=== PATIENT | female | born 1990 | race Caucasian/White ===

== ENCOUNTER → 2016-10-13 | Outpatient (REF) | payer OTHER | END | disposition home or self-care (01) | LOC: M LAB REF 12:30 | PROVIDERS: ATTEND Obstetrics & Gynecology | DX: Z34.83 Encounter for supervision of other normal pregnancy, third trimester (principal); Z36 Encounter for antenatal screening of mother; Z3A.00 Weeks of gestation of pregnancy not specified ==

== ENCOUNTER 2016-11-06 16:00 | Inpatient (IN) | payer OTHER ==
[~2016-11-06] VITALS: Ht 160 cm; Wt 93.0 kg
[2016-11-06 16:22] VITALS: BP 129/76
[2016-11-06] MEDS ORDERED: ADV250INH INH (17:01)
[2016-11-06] MEDS ORDERED: PRENTAB9 PO (17:01)
[2016-11-06] MEDS ORDERED: ZANTTAB PO (17:01)
[2016-11-06] MEDS ORDERED: ALBU17IN2 INH (17:01)
[2016-11-06] MEDS ORDERED: LACTATED RINGER'S 1000 ML IV STA (17:25)
[2016-11-06] MEDS ORDERED: OXYTOCIN DRIP 30 UNITS in APPROPRIATE DILUENT 1 EA IV SCH (17:30)
[2016-11-06 18:07] VITALS: BP 128/70
--- NOTE | 2016-11-06 18:11 | HPEPDOC ---
Obstetrical History & Physical General Date of Admission Nov 06, 2016 at 16:00 History of Present Illness Patient is a 5-year-old female who is a at 39 weeks 4 days gestation with an JAJA of 11/09/2016 based off of her LMP and consistent with her first and second trimester ultrasounds. [facility] her has been complicated by asthma , being a smoker, and an abnormal second trimester ultrasound. Patient is seen at the center for an echogenic foci on the heart and choroid plexus cyst, both of which have resolved. The other concern was an echogenic foci on the liver. Patient declined genetic screening. He presented in the office today with complaints of leaking of fluid that started at 1:30 PM that was clear. Patient had a positive nitrazine, scant amount of clear fluid in the vaginal vault, and was positive for a fern test. Patient reports active movement. Denies contractions and vaginal bleeding. Chief Complaint: Rupture of membranes Information Provided By: Patient Age: 25 : 5 Term: 3 Pre-term: 0 Abortions: 1 Livin Care Care: Good Care Dating Final EDC: Nov 09, 2016 Final EDC by: LMP LMP: February 03, 2016 EGA at Admission: 39.4 Antepartum Course Height (inches): 63 Pre- weight (lbs.): 208 Admission Weight (lbs.): 212 Change in Weight (lbs.): 4 Past Medical History Past Obstetrical History #1: Past Obstetrical History: Multigravida Date of Delivery: Jun 07, 2008 Gestation: 39 Type of Delivery: Spontaneous Vaginal Del. Sex of Infant: Female Complications: No (8 lbs. 2 oz.) Past Obstetrical History #2: Date of Delivery: Apr 11, 2010 Gestation: 40 Type of Delivery: Spontaneous Vaginal Del. Sex of : Female Complications: No (weight 8 lbs. 5 oz.; placed for adoption) Past Obstetrical History #3: Date of Delivery: Sep 04, 2011 Type of Delivery: Spontaneous Vaginal Del. Sex of Infant: Male Complications: No (weight: 7 pounds) Past Obstetrical History #4: Complications: Yes (first trimester miscarriage) [employer] History: No pertinent history Past Medical History Medical History Asthma Surgical History: Denies/None Family History Significant Family History: No pertinent family hx Social History Marital Status: Single Family situation: Spouse/partner home Psychosocial History: No pertinent psych hx * Smoker: current smoker Alcohol: denies Drugs: denies Abuse Violence Screening Have you been hit/kicked/slapp: No Have you been sexually assault: No Imunizations Tdap status: current Allergies Coded Allergies: Pollen Extract (Verified Allergy, Mild, (ALSO CATS,DOGS)ITCHY EYES, 12/16/12 ) No Known Drug Allergy (Verified Allergy, Unknown, 12/16/12) Medications Scheduled Multivitamins/ ( 27-0.8 mg) 1 Tab Tab 1 TAB PO DAILY Ranitidine Hcl (Zantac 150 Maximum Streng) 150 Mg Tab 1 TAB PO DAILY Salmeterol/Fluticasone (Advair Diskus 250-50 Mcg/Dose) 14 Puff/Inhaler Aerp 1 PUFF INH DAILY Scheduled PRN Albuterol Sulfate (Proventil Hfa) 167 Puff/6.7 Gm Aers 2 PUFFS INH PRN PRN PRN WHEEZING Physical Examination Physical Examination GENERAL: Alert and oriented times three. BREAST: . ABDOMEN: Gravid and non-tender to touch. FETUS: Is vertex (VTX) by sterile vaginal examination (SVE), fetus is vertex ( VTX) by Eliazar. HEART RATE: Regular rate and rhythm. LUNGS: Clear to auscultation (CTA). EXTREMITIES: No edema. No clonus. Deep tendon reflexes (DTRs) + 2. Vital Signs/I&O Vital Signs Date Time Temp Pulse Resp B/P Pulse Ox O2 Delivery O2 Flow Rate FiO2 11/06/16 16:22 99.7 101 18 129/76 Laboratory Data 24H LABS Laboratory Tests 2 11/06/16 16:24: Serology Scanned Report Hepatitis B Testing Urine Culture: No Growth Pertinent Laboratoy Data Blood Type: O- RBC Antibody Screen: Negative HIV: Negative Hepatitis B: Negative Rapid Plasma Reagin: Nonreactive Rubella: Immune Chlamydia/Gonorrhea: Negative Group B Streptococcus: Negative Quad Screen Test: Declined Glucose Tolerance Test: 93 Vaginal Examination Dilation: 4 cm Effacement: Other (50%) Station: -2 Cervical Consistency: Soft Cervical Position: Middle Presentation: Cephalic presentation Position: Vertex (occiput) Assessment Heart Rate (FHR): 135 Variability: Moderate Accelerations: Positive Decelerations: None Tocometer Contractions: Yes Frequency: other (2-6 minutes) Duration: greater than 60 seconds Strength: palpated as mild Multi-drug resistant Organism: No history of MDRO Assessment/Plan Assessment IUP at 39 weeks 4 days gestation Spontaneous rupture of membrane Not in active labor Category 1 heart rate tracing Plan Admit to labor and delivery. Out of bed as tolerated. Saline lock and labs per protocol. Regular diet. Patient to be started on Pitocin via IV per order. Risks and benefits reviewed with patient. All questions addressed. Diet will change her clear liquids as soon as Pitocin is started. Reviewed pain management options with patient. Anticipate cervical change and spontaneous vaginal delivery. SAMMY FLEMING CNM Nov 06, 2016 18:11
[2016-11-06 18:32] LABS: MEAN CORPUSCULAR HEMOGLOBIN 32.4 pg (27.0-33.0); MEAN CORPUSCULAR HGB CONC 36.1 g/dl (32.0-36.5); MEAN CORPUSCULAR VOLUME 89.9 fl (80.0-96.0); RED CELL DISTRIBUTION WIDTH 13.6 % (11.5-14.5); WHITE BLOOD COUNT 11.4 K/mm3 (4.0-10.0)
[2016-11-06 18:38] VITALS: BP 136/75
[2016-11-06] MEDS ORDERED: BUTORPHANOL 2 MG/ML INJ (J0595) IV ONE (23:45)
[2016-11-06] MEDS ORDERED: PROMETHAZINE INJ 25 MG/ML VIAL (J2550) IV ONE (23:45)
[2016-11-07] MEDS ORDERED: OXYTOCIN DRIP 30 UNITS in APPROPRIATE DILUENT 1 EA IV SCH (02:55)
[2016-11-07] MEDS ORDERED: ANUSOL HC CREAM 30GM TOP PRN (03:00)
[2016-11-07] MEDS ORDERED: DOCUSATE SODIUM 100 MG CAP PO PRN (03:00)
[2016-11-07] MEDS ORDERED: RHOGAM 300 MCG (1500 IU) INJ (J2790) IM SCH (03:00)
[2016-11-07] MEDS ORDERED: METHYLERGONOVINE MALEATE 0.2 MG TAB PO PRN (03:00)
[2016-11-07] MEDS ORDERED: MEASLES,MUMPS,RUBELLA VACCINE INJ (MMR-II) (90707) SC SCH (03:00)
[2016-11-07] MEDS ORDERED: DIBUCAINE 1% OINTMENT 30GM TOP PRN (03:00)
--- NOTE | 2016-11-07 03:16 | DNPDOC ---
Delivery Note Delivery Note DATE OF DELIVERY: Nov 07, 2016 at 02:22. Yulissa Is a 25-year-old now G 5 P 4014 at 39.5 weeks' gestation who presented to labor and delivery spontaneous rupture of membranes at 1330 on 11/06/2016. She progressed to fully dilated at 0219 with the use of Pitocin to augment her labor. Patient pushed to a spontaneous vaginal delivery at 0222 to a living male in the CLEMENTINA position with restitution to ROT. No nuchal cord. A right nuchal hand noted prior to delivery of shoulders. Shoulders delivered with ease and the corpus immediately followed. Baby placed on maternal abdomen active and with a spontaneous cry. Cord clamped 2 and cut by father of the baby after pulsation ceased. Cord blood obtained. Spontaneous delivery of intact placenta with a three-vessel cord by Calderón mechanism at 0229. Uterine hemostasis achieved by rapid infusion of IV Pitocin and uterine fundal massage. Perineum and vagina inspected and found to have a first degree perineal laceration, which was repaired with a 3. 0 Vicryl Rapide CT1. Lidocaine 1% used. EBL 150. 's 9/9. Weight 7 lbs. 11 oz, 3480 g. Gardners's name Kameron and is bottle feeding. SAMMY FLEMING CNM Nov 07, 2016 03:15
[2016-11-07] MEDS: IBUPROFEN 800 MG TAB PO PRN ×2 (04:48→14:55)
[2016-11-07 04:50] VITALS: BP 112/64
[2016-11-07 06:33] VITALS: BP 116/58
[2016-11-07] MEDS: LR 1,000 ML IV SCH (07:16)
[2016-11-07] MEDS: ACETAMINOPHEN 500 MG TAB PO PRN (07:37)
[2016-11-07] MEDS: PRENATAL VITAMIN TAB PO SCH (09:00)
[2016-11-07 18:21] VITALS: BP 117/63
[2016-11-08] MEDS: ACETAMINOPHEN 500 MG TAB PO PRN (00:08)
[2016-11-08] MEDS: IBUPROFEN 800 MG TAB PO PRN (06:02)
[2016-11-08 06:06] VITALS: BP 134/84
[2016-11-08] MEDS: PRENATAL VITAMIN TAB PO SCH (07:26)
[2016-11-08] MEDS ORDERED: ACET50TA PO (10:09)
[2016-11-08] MEDS ORDERED: PRENTAB9 PO (10:09)
[2016-11-08] MEDS ORDERED: IBUP-1114 PO (10:09)
== END 2016-11-08 11:20 | disposition home or self-care (01) | DRG 560 ==
LOC: M LDI 16:00 → M OBS 11-07 06:39
PROVIDERS: ADMIT Obstetrics & Gynecology; ATTEND Advanced Practice Midwife
PROC: 10E0XZZ Delivery of Products of Conception, External Approach (ICD-10-PCS; principal; 2016-11-07)
PROC: 0HQ9XZZ Repair Perineum Skin, External Approach (ICD-10-PCS; 2016-11-07)
DX: O99.513 Diseases of the respiratory system complicating pregnancy, third trimester (principal); J45.909 Unspecified asthma, uncomplicated; O99.334 Smoking (tobacco) complicating childbirth; F17.210 Nicotine dependence, cigarettes, uncomplicated; O70.0 First degree perineal laceration during delivery; O32.6XX0 Maternal care for compound presentation, not applicable or unspecified; Z37.0 Single live birth; Z3A.39 39 weeks gestation of pregnancy

== ENCOUNTER → 2017-01-25 | Outpatient (CLI) | payer OTHER ==
[~2017-01-25] MED LIST: ACET50TA PO; ADV250INH INH; ALBU17IN2 INH; IBUP-1114 PO; PRENTAB9 PO; ZANTTAB PO
--- NOTE | 2017-01-26 07:34 | REP ---
CHEST X-RAY: Two views. HISTORY: Wheezing and fever. Comparison chest x-rays from December 02, 2015. FINDINGS: There is subtle infiltrate in the right base overlying the right hemidiaphragm and medially on the frontal radiograph. Some of this appears to be in a middle lobe distribution based on the lateral radiograph. IMPRESSION: Suspected right middle lobe and lower lobe infiltrates consistent with pneumonia. Signed by Ryan Spicer MD 01/26/2017 08:13 A
== END ==
LOC: M RAD 18:31
PROVIDERS: ATTEND Physician Assistant
DX: R06.2 Wheezing (principal); R05 Cough; R91.8 Other nonspecific abnormal finding of lung field

== ENCOUNTER 2017-09-15 00:18 | Emergency (ER) | payer OTHER ==
[2017-09-15] MEDS: BACTRIM 160MG/800MG DS TAB PO (00:56)
[2017-09-15] MEDS: PERCOCET 5MG/325MG TAB PO (00:58)
== END 2017-09-15 01:33 | disposition home or self-care (01) ==
LOC: M ED 00:18
DX: L02.411 Cutaneous abscess of right axilla (principal); J45.909 Unspecified asthma, uncomplicated; F17.210 Nicotine dependence, cigarettes, uncomplicated; Z91.048 Other nonmedicinal substance allergy status
CPT/HCPCS: 87186

== ENCOUNTER → 2018-10-22 | Outpatient (REF) | payer OTHER ==
[~2018-10-22] MED LIST changes: -ACET50TA PO; +BACT800T5 PO; +MAPA500T2 PO
[2018-10-22 11:10] LABS: HEMATOCRIT 41.4 % (36.0-47.0); HEMOGLOBIN 14.3 g/dl (12.0-15.5); MEAN CORPUSCULAR HEMOGLOBIN 31.4 pg (27.0-33.0); MEAN CORPUSCULAR HGB CONC 34.5 g/dl (32.0-36.5); PLATELET COUNT, AUTOMATED 216 10^3/uL (150-450); RED BLOOD COUNT 4.55 10^6/uL (4.00-5.40); WHITE BLOOD COUNT 7.2 10^3/uL (4.0-10.0)
[2018-10-22 11:20] LABS: ALBUMIN 3.8 GM/DL (3.2-5.2); ALT/SGPT 24 U/L (12-78); BILIRUBIN,TOTAL 0.4 MG/DL (0.2-1.0); BLOOD UREA NITROGEN 8 MG/DL (7-18); CALCIUM LEVEL 8.7 MG/DL (8.5-10.1); CARBON DIOXIDE LEVEL 28 MEQ/L (21-32); CHLORIDE LEVEL 107 MEQ/L (98-107); CHOLESTEROL LEVEL 182 MG/DL (<200); CHOLESTEROL RISK RATIO 4.439 (<5); CREATININE FOR GFR 0.45 MG/DL (0.55-1.30); GLOMERULAR FILTRATION RATE > 60.0 (>60); GLUCOSE, FASTING 85 MG/DL (70-100); HDL CHOLESTEROL 41 MG/DL (>40); LDL CHOLESTEROL 116 MG/DL (<100); NON-HDL-C 141 MG/DL; SODIUM LEVEL 142 MEQ/L (136-145); THYROID STIMULATING HORMONE 0.622 uIU/ML (0.358-3.740); TOTAL PROTEIN 6.3 GM/DL (6.4-8.2); TRIGLYCERIDES LEVEL 126 MG/DL (<150)
== END ==
LOC: M SFHCPLAZ 09:10
PROVIDERS: ATTEND Physician Assistant
DX: Z00.00 Encounter for general adult medical examination without abnormal findings (principal); Z13.220 Encounter for screening for lipoid disorders

== ENCOUNTER → 2018-12-26 | Outpatient (CLI) | payer OTHER ==
--- NOTE | 2018-12-27 01:04 | REP ---
Clinical: Posterior right knee pain. Technique: AP, lateral, bilateral oblique and sunrise views. Findings: The osseous structures and joint spaces are intact and normal. There is no evidence for acute fracture or dislocation. No joint effusion is appreciated. Surrounding soft tissues are unremarkable. No subcutaneous emphysema or radiodense foreign body. Impression: Normal examination. No acute fracture or dislocation. Electronically Signed by Chay Mann MD 12/27/2018 12:55 A
== END ==
LOC: M WUC 19:01
PROVIDERS: ATTEND Physician Assistant
DX: M25.562 Pain in left knee (principal)

== ENCOUNTER → 2019-01-01 | Outpatient (CLI) | payer OTHER ==
--- NOTE | 2019-01-01 13:53 | REP ---
REASON: Knee pain and swelling. No priors. Multiple ultrasonographic images of the posterior soft tissues of the left knee of the popliteal fossa show no cystic or solid masses. IMPRESSION: Negative ultrasound examination. Electronically Signed by Cali Hugo DO 01/01/2019 05:01 P
== END ==
LOC: M RAD 11:54
PROVIDERS: ATTEND Physician Assistant
DX: M25.562 Pain in left knee (principal)

== ENCOUNTER → 2019-06-19 | Outpatient (CLI) | payer OTHER ==
[~2019-06-19] MED LIST changes: +ZANT150T40 PO; -ZANTTAB PO
--- NOTE | 2019-06-19 15:19 | REP ---
LEFT LOWER EXTREMITY DUPLEX DOPPLER VENOUS ULTRASOUND WITH EVALUATION FOR VENOUS REFLUX: Real-time compression and duplex Doppler interrogation of the left lower extremity deep venous system is performed. The left common femoral, superficial femoral and popliteal veins are fully compressible with transducer pressure and demonstrate normal spontaneous and phasic flow without evidence of deep venous thrombosis. There is some degree of reflux in the left common femoral vein and proximal to mid superficial femoral vein, with no reflux in the more distal superficial femoral vein. There is reflux in the popliteal vein. There is no evidence of an anterior accessory greater saphenous vein. There is reflux in the greater saphenous vein at the saphenofemoral junction for a duration of 3.2 seconds, measuring 7 mm in diameter. There is also reflux in the greater saphenous vein of the midthigh which measures 3 mm for a duration of 1.3 seconds and at the knee which measures 4 mm, with a duration of 1.5 seconds. There is no reflux in the lesser saphenous vein which measures 4 mm. Electronically Signed by Antoni Florence MD 06/19/2019 05:59 P
== END ==
LOC: M RAD 12:22
PROVIDERS: ATTEND Obstetrics & Gynecology
DX: M79.89 Other specified soft tissue disorders (principal)

== ENCOUNTER → 2019-07-23 | Outpatient (CLI) | payer OTHER ==
--- NOTE | 2019-07-23 17:40 | PFTRPT ---
Site: [facility], [address] [place] [address], [id number] ID: [id number] Name: NANCY FELICIANO Visit Date: 07/23/2019 Second ID: [id number] Referring Doctor: Rachel Smith DO Reviewing Doctor: Eduardo Hernandez MD Culture Manager: Rhea Liang Age: 28 : 1990 Sex: Female Race: Height: 64.00 Inches Weight: 210.00 Lbs BSA: 2.00 Order IDs: [id number] Requested Test(s): <RESP-PFT.DLCO> Diagnosis: J45.20 test meet the ATS standards for acceptability and repeatability. Pt was given four puffs of albuterol for postbronchodilator. Review Status: Not Reviewed Pre-Bronch Post-Bronch Pred Actual %Pred Actual %Chng SPIROMETRY FVC (L) 3.78 3.74 98 4.03 7 FEV1 (L) 3.19 2.87 89 3.15 9 FEV1/FVC (%) 85 77 90 78 1 FEF 25% (L/sec) 5.71 4.63 81 6.12 32 FEF 50% (L/sec) 4.51 3.17 70 3.95 24 FEF 75% (L/sec) 1.91 1.06 55 1.60 50 FEF 25-75% (L/sec) 3.47 2.49 71 3.29 31 FEF Max (L/sec) 7.00 4.83 69 6.59 36 FIVC (L) 3.88 4.09 5 FIF 50% (L/sec) 4.33 4.51 104 5.15 14 FIF Max (L/sec) 4.70 5.30 12 MVV (L/min) 109 96 87 Expiratory Time (sec) 7.25 6.90 -4 Back Extrap Vol (L) 0.10 0.10 3 Time To FEFmax (sec) 0.154 0.098 -36 LUNG VOLUMES SVC (L) 3.67 3.98 108 IC (L) 2.29 3.40 148 ERV (L) 1.38 0.58 42 TGV (L) 2.76 3.11 112 RV (Pleth) (L) 1.38 2.52 182 TLC (Pleth) (L) 5.05 6.51 128 RV/TLC (Pleth) (%) 27 39 143 DIFFUSION DLCOunc (ml/min/mmHg) 25.00 28.20 112 DLCOcor (ml/min/mmHg) 25.00 27.95 111 DL/VA (ml/min/mmHg/L) 4.95 5.35 108 VA (L) 5.05 5.23 103 BHT (sec) 10.34 IVC (L) 3.93 TLC (SB) (L) 5.38 AIRWAYS RESISTANCE Raw (cmH2O/L/s) 1.86 2.09 112 Gaw (L/s/cmH2O) 1.03 0.48 46 sRaw (cmH2O*s) 4.76 7.65 160 sGaw (1/cmH2O*s) 0.20 0.13 65 BLOOD GASES Hgb (gm/dL) 13.7
== END ==
LOC: M CARPUL 16:44
PROVIDERS: ATTEND Obstetrics & Gynecology
DX: J45.909 Unspecified asthma, uncomplicated (principal)

== ENCOUNTER → 2019-11-09 | Outpatient (REF) | payer OTHER | LOC: M LAB REF 15:13 | PROVIDERS: ATTEND Physician Assistant Medical | DX: R50.9 Fever, unspecified (principal) ==

== ENCOUNTER 2020-11-30 18:47 | Emergency (ER) | payer OTHER ==
[~2020-11-30] VITALS: Ht 162.6 cm; Wt 91.5 kg
[2020-11-30] MEDS ORDERED: STRI1AER2 (18:56)
[2020-11-30] MEDS ORDERED: ARNU1INH (18:56)
[2020-11-30] MEDS ORDERED: LIDOCAINE 1% MDV 20ML VIAL SC ONE (19:25)
[2020-11-30] MEDS ORDERED: NEOSPORIN OINT 0.9 GM PKT TOP ONE (20:30)
[2020-11-30 20:37] VITALS: BP 132/68
== END 2020-11-30 20:46 | disposition home or self-care (01) ==
LOC: M ED 18:47
DX: S61.011A Laceration without foreign body of right thumb without damage to nail, initial encounter (principal); W26.8XXA Contact with other sharp object(s), not elsewhere classified, initial encounter; Y92.89 Other specified places as the place of occurrence of the external cause; Y99.0 Civilian activity done for income or pay; J45.909 Unspecified asthma, uncomplicated

== ENCOUNTER 2020-12-06 15:43 | Emergency (ER) | payer OTHER ==
[~2020-12-06] VITALS: Ht 160 cm; Wt 93.5 kg
[~2020-12-06 15:43] MED LIST changes: +ARNU1INH; +STRI1AER2
[2020-12-06 15:45] VITALS: BP 126/74
== END 2020-12-06 17:28 | disposition home or self-care (01) ==
LOC: M ED 15:43
DX: Z48.02 Encounter for removal of sutures (principal)

== ENCOUNTER → 2021-03-10 | Outpatient (REF) | payer OTHER ==
[2021-03-10 13:21] LABS: HEMATOCRIT 41.8 % (36.0-47.0); HEMOGLOBIN 14.3 g/dl (12.0-15.5); MEAN CORPUSCULAR HEMOGLOBIN 32.2 pg (27.0-33.0); MEAN CORPUSCULAR HGB CONC 34.2 g/dl (32.0-36.5); MEAN CORPUSCULAR VOLUME 94.1 fl (80.0-96.0); PLATELET COUNT, AUTOMATED 202 10^3/uL (150-450); RED BLOOD COUNT 4.44 10^6/uL (4.00-5.40); WHITE BLOOD COUNT 9.8 10^3/uL (4.0-10.0)
[2021-03-10 13:50] LABS: HCG, SERUM QUANTITATIVE 142 MIU/ML
[2021-03-10 13:52] LABS: HEMOGLOBIN A1c 4.9 %
[2021-03-10 14:09] LABS: HEPATITIS B SURFACE ANTIGEN NEGATIVE (NEGATIVE)
[2021-03-10 14:37] LABS: HEPATITIS C VIRUS ABY INDEX < 0.0 INDEX (<0.8)
[2021-03-10 14:38] LABS: HIV 1&2 SCREEN CENTAUR NEGATIVE (NEGATIVE)
== END ==
LOC: M LAB REF 12:19
PROVIDERS: ATTEND Obstetrics & Gynecology
DX: O36.80X0 Pregnancy with inconclusive fetal viability, not applicable or unspecified (principal); Z32.01 Encounter for pregnancy test, result positive

== ENCOUNTER 2021-03-17 01:05 | Emergency (ER) | payer OTHER ==
[~2021-03-17] VITALS: Ht 160 cm; Wt 92.4 kg
[2021-03-17 02:41] LABS: BASO # 0.1 10^3/uL (0.0-0.2); BASO % 0.4 % (0.0-1.0); EOS # 0.2 10^3/uL (0.0-0.5); EOS % 1.9 % (0.0-3.0); HEMATOCRIT 41.2 % (36.0-47.0); HEMOGLOBIN 14.5 g/dl (12.0-15.5); LYMPH # 4.2 10^3/uL (1.5-5.0); LYMPH % 35.3 % (24.0-44.0); MEAN CORPUSCULAR HEMOGLOBIN 32.9 pg (27.0-33.0); MEAN CORPUSCULAR HGB CONC 35.2 g/dl (32.0-36.5); MEAN CORPUSCULAR VOLUME 93.4 fl (80.0-96.0); MONO # 0.6 10^3/uL (0.0-0.8); MONO % 5.3 % (2.0-8.0); NEUTROPHILS # 6.8 10^3/uL (1.5-8.5); NEUTROPHILS % 56.9 % (36.0-66.0); PLATELET COUNT, AUTOMATED 240 10^3/uL (150-450); RED BLOOD COUNT 4.41 10^6/uL (4.00-5.40)
[2021-03-17 03:30] LABS: BLOOD UREA NITROGEN 13 MG/DL (7-18); CALCIUM LEVEL 9.1 MG/DL (8.5-10.1); CARBON DIOXIDE LEVEL 27 MEQ/L (21-32); CHLORIDE LEVEL 108 MEQ/L (98-107); CREATININE FOR GFR 0.46 MG/DL (0.55-1.30); GLOMERULAR FILTRATION RATE > 60.0 (>60); GLUCOSE, FASTING 79 MG/DL (70-100); HCG, SERUM QUANTITATIVE 2621 MIU/ML; POTASSIUM SERUM 3.6 MEQ/L (3.5-5.1); SODIUM LEVEL 140 MEQ/L (136-145)
--- NOTE | 2021-03-17 04:56 | REPVR ---
PROCEDURE INFORMATION: Exam: US First Trimester, Transabdominal Exam date and time: 03/17/21 (2:56am) Age: 30 years old Clinical indication: female. (+) test. LMP or gestational age (in weeks): Unknown. Pelvic pain and vaginal bleeding. TECHNIQUE: Imaging protocol: Real-time transabdominal obstetrical ultrasound of the maternal pelvis and a first trimester , less than 14 weeks 0 days, with image documentation. COMPARISON: No relevant prior studies available FINDINGS: The LMP is not certain. A small intrauterine fluid collection is seen --- perhaps an early intrauterine gestational sac. If this represents an early sac, it corresponds to an expected age = 5 weeks 2 days (MSD = 6.7 mm). No pole and no yolk sac are seen. Probable small hemorrhage (18 x 6 x 14 mm size) adjacent to the sac The uterus is anteverted, measuring 8.6 x 5.5 x 6.2 cm in dimensions. The maternal right ovary measures 2.0 x 1.2 x 1.9 cm in dimensions. The left ovary measures 3.5 x 1.9 x 4.0 cm in dimensions. Left ovarian cyst (1.9 cm avg. size). There is no evidence of torsion on Doppler evaluation. No free pelvic fluid is appreciated. No solid adnexal mass. IMPRESSION: A small intrauterine fluid collection is seen --- probably an early intrauterine gestational sac. If this represents an early sac, it corresponds to an expected age = 5 weeks 2 days (based on the MSD). No pole and no yolk sac are seen. The differential diagnosis includes: early intrauterine ; missed ; failed early ; nonvisualized ectopic . Clinical and quantitative hCG correlation are needed. A follow-up sonogram in 6-10 days can be obtained to assess for development and heartbeat, if felt appropriate. In the appropriate clinical setting, an ectopic cannot be excluded. Electronically signed by: Nikia Spaulding On 03/17/2021 04:55:19 AM
[2021-03-17 05:30] VITALS: BP 115/71
== END 2021-03-17 05:45 | disposition home or self-care (01) ==
LOC: M ED 01:05
DX: O99.891 Other specified diseases and conditions complicating pregnancy (principal); R10.2 Pelvic and perineal pain; O99.331 Smoking (tobacco) complicating pregnancy, first trimester; F17.210 Nicotine dependence, cigarettes, uncomplicated; Z3A.01 Less than 8 weeks gestation of pregnancy; Z79.51 Long term (current) use of inhaled steroids

== ENCOUNTER 2021-03-28 14:21 | Emergency (ER) | payer OTHER ==
[~2021-03-28] VITALS: Ht 160 cm; Wt 88.4 kg
[2021-03-28 15:29] LABS: BASO % 0.3 % (0.0-1.0); EOS # 0.2 10^3/uL (0.0-0.5); EOS % 1.4 % (0.0-3.0); HEMATOCRIT 46.8 % (36.0-47.0); HEMOGLOBIN 16.6 g/dl (12.0-15.5); LYMPH # 2.1 10^3/uL (1.5-5.0); LYMPH % 17.5 % (24.0-44.0); MEAN CORPUSCULAR HEMOGLOBIN 32.4 pg (27.0-33.0); MEAN CORPUSCULAR HGB CONC 35.5 g/dl (32.0-36.5); MEAN CORPUSCULAR VOLUME 91.2 fl (80.0-96.0); MONO # 0.8 10^3/uL (0.0-0.8); MONO % 7.2 % (2.0-8.0); NEUTROPHILS # 8.6 10^3/uL (1.5-8.5); NEUTROPHILS % 73.3 % (36.0-66.0); PLATELET COUNT, AUTOMATED 223 10^3/uL (150-450); RED BLOOD COUNT 5.13 10^6/uL (4.00-5.40); WHITE BLOOD COUNT 11.7 10^3/uL (4.0-10.0)
[2021-03-28 16:01] LABS: ALBUMIN 3.8 GM/DL (3.2-5.2); ALT/SGPT 64 U/L (12-78); BILIRUBIN,DIRECT 0.1 MG/DL (0.0-0.2); BILIRUBIN,TOTAL 0.5 MG/DL (0.2-1.0); BLOOD UREA NITROGEN 8 MG/DL (7-18); CALCIUM LEVEL 8.9 MG/DL (8.5-10.1); CARBON DIOXIDE LEVEL 24 MEQ/L (21-32); CHLORIDE LEVEL 106 MEQ/L (98-107); CREATININE FOR GFR 0.48 MG/DL (0.55-1.30); GLOMERULAR FILTRATION RATE > 60.0 (>60); GLUCOSE, FASTING 81 MG/DL (70-100); LIPASE 53 U/L (73-393); SODIUM LEVEL 139 MEQ/L (136-145); TOTAL PROTEIN 7.1 GM/DL (6.4-8.2)
[2021-03-28 16:47] LABS: APPEARANCE, URINE HAZY (CLEAR); BACTERIA, URINE AUTO NEGATIVE (NEGATIVE); BILIRUBIN, URINE AUTO NEGATIVE (NEGATIVE); BLOOD, URINE BLOOD NEGATIVE (NEGATIVE); COLOR, URINE AMBER (YELLOW); GLUCOSE, URINE (UA) AUTO NEGATIVE (NEGATIVE); KETONE, URINE AUTO 1+ mg/dL (NEGATIVE); LEUKOCYTE ESTERASE, URINE AUTO NEGATIVE (NEGATIVE); MUCUS, URINE MODERATE (NEGATIVE); NITRITE, URINE AUTO NEGATIVE (NEGATIVE); PROTEIN, URINE AUTO 1+ mg/dL (NEGATIVE); RBC, URINE AUTO 0 /HPF (0-3); SPECIFIC GRAVITY URINE AUTO 1.033 (1.002-1.035); SQUAMOUS EPITHELIAL CELL UR AU 5 /HPF (0-6); WBC, URINE AUTO 2 /HPF (0-3)
[2021-03-28 17:56] LABS: HCG, SERUM QUANTITATIVE 46759 MIU/ML
[2021-03-28] MEDS ORDERED: ONDA4TAB6 PO (19:23)
[2021-03-28 19:37] VITALS: BP 120/59
== END 2021-03-28 19:39 | disposition home or self-care (01) ==
LOC: M ED 14:21
DX: K80.70 Calculus of gallbladder and bile duct without cholecystitis without obstruction (principal); Z3A.01 Less than 8 weeks gestation of pregnancy; Z87.891 Personal history of nicotine dependence

== ENCOUNTER 2021-03-30 17:01 | Inpatient (IN) | payer OTHER ==
[~2021-03-30] VITALS: Ht 165.1 cm; Wt 89.2 kg
[~2021-03-30 17:01] MED LIST changes: +ONDA4TAB6 PO
[2021-03-30] MEDS ORDERED: NS 1,000 ML IV ONE (18:05)
[2021-03-30] MEDS ORDERED: METOCLOPRAMIDE INJ 10MG/2ML VIAL (J2765 PER 1) IV ONE (18:05)
[2021-03-30 18:55] LABS: APPEARANCE, URINE CLOUDY (CLEAR); BACTERIA, URINE AUTO NEGATIVE (NEGATIVE); BILIRUBIN, URINE AUTO 1+ (NEGATIVE); BLOOD, URINE BLOOD NEGATIVE (NEGATIVE); COLOR, URINE AMBER (YELLOW); GLUCOSE, URINE (UA) AUTO NEGATIVE (NEGATIVE); KETONE, URINE AUTO 2+ mg/dL (NEGATIVE); LEUKOCYTE ESTERASE, URINE AUTO 2+ (NEGATIVE); MUCUS, URINE LARGE (NEGATIVE); NITRITE, URINE AUTO NEGATIVE (NEGATIVE); PROTEIN, URINE AUTO 2+ mg/dL (NEGATIVE); RBC, URINE AUTO 3 /HPF (0-3); SPECIFIC GRAVITY URINE AUTO 1.035 (1.002-1.035); SQUAMOUS EPITHELIAL CELL UR AU 30 /HPF (0-6); WBC, URINE AUTO 55 /HPF (0-3)
[2021-03-30 19:23] LABS: ALBUMIN 3.4 GM/DL (3.2-5.2); ALT/SGPT 146 U/L (12-78); BILIRUBIN,DIRECT 0.7 MG/DL (0.0-0.2); BILIRUBIN,TOTAL 1.3 MG/DL (0.2-1.0); BLOOD UREA NITROGEN 8 MG/DL (7-18); CALCIUM LEVEL 8.4 MG/DL (8.5-10.1); CARBON DIOXIDE LEVEL 22 MEQ/L (21-32); CHLORIDE LEVEL 105 MEQ/L (98-107); CK-MB VALUE MASS < 1.0 NG/ML (<3.6); CPK CREATINE PHOSPHOKINASE 54 U/L (26-192); CREATININE FOR GFR 0.29 MG/DL (0.55-1.30); FREE T4 1.95 NG/DL (0.76-1.46); GLOMERULAR FILTRATION RATE > 60.0 (>60); GLUCOSE, FASTING 81 MG/DL (70-100); HCG, SERUM QUANTITATIVE 54482 MIU/ML; LIPASE 66 U/L (73-393); MB/CK RELATIVE INDEX 1.85 (< OR =4); POTASSIUM SERUM 3.2 MEQ/L (3.5-5.1); SODIUM LEVEL 139 MEQ/L (136-145); THYROID STIMULATING HORMONE 0.264 uIU/ML (0.358-3.740); TOTAL PROTEIN 6.3 GM/DL (6.4-8.2); TROPONIN I < 0.02 NG/ML (< 0.10)
[2021-03-30 19:27] LABS: BASO % 0.2 % (0.0-1.0); EOS # 0.4 10^3/uL (0.0-0.5); EOS % 4.5 % (0.0-3.0); HEMATOCRIT 41.4 % (36.0-47.0); HEMOGLOBIN 15.4 g/dl (12.0-15.5); LYMPH # 1.6 10^3/uL (1.5-5.0); LYMPH % 18.7 % (24.0-44.0); MEAN CORPUSCULAR HEMOGLOBIN 32.6 pg (27.0-33.0); MEAN CORPUSCULAR HGB CONC 37.2 g/dl (32.0-36.5); MEAN CORPUSCULAR VOLUME 87.5 fl (80.0-96.0); MONO # 0.9 10^3/uL (0.0-0.8); MONO % 10.3 % (2.0-8.0); NEUTROPHILS # 5.7 10^3/uL (1.5-8.5); NEUTROPHILS % 66.1 % (36.0-66.0); PLATELET COUNT, AUTOMATED 193 10^3/uL (150-450); RED BLOOD COUNT 4.73 10^6/uL (4.00-5.40); WHITE BLOOD COUNT 8.7 10^3/uL (4.0-10.0)
--- NOTE | 2021-03-30 20:59 | ECGEPIP ---
[facility] - ED Test Date: 2021-03-30 Pat Name: NANCY FELICIANO Department: Room: - Gender: Female Ticket Maker: essence : 1990 Requested By: ALLI Sanchez PA-C Order Number: [id number] Reading MD: Merritt Urbina Measurements Intervals Maury Rate: 65 P: 23 AR: 164 QRS: 59 QRSD: 94 T: 74 QT: 450 QTc: 468 Interpretive Statements Normal sinus rhythm POOR R WAVE PROGRESSION NO PRIORS FOR COMPARISON Electronically Signed on 03-30-2021 20:58:40 EDT by Merritt Urbina
--- NOTE | 2021-03-30 21:55 | REPVR ---
PROCEDURE INFORMATION: Exam: US Abdomen, Limited; Right Upper Quadrant Exam date and time: 03/30/21 (8:17pm) Age: 30 years old Clinical indication: Abdominal pain. female. History of gallstones and elevated LFT's. TECHNIQUE: Imaging protocol: US abdomen. Real time ultrasound with image documentation. Limited examination focused on the right upper quadrant. COMPARISON: US OB of 03/30/21 FINDINGS: The liver is visually normal in size and texture. Large gallstone (16 mm diameter). Mildly thickened gallbladder wall (3.2 mm thickness). No pericholecystic fluid is appreciated. The CBD is not dilated (3.5 mm diameter). The pancreas is obscured by bowel gas. The right kidney measures 11.4 cm in length, with no hydronephrosis appreciated. No ascites is seen. IMPRESSION: Large gallstone (1.6 cm diameter). Mildly thickened gallbladder wall. No biliary dilatation. The pancreas is obscured by bowel gas. Electronically signed by: Nikia Spaulding On 03/30/2021 21:54:29 PM
--- NOTE | 2021-03-30 22:04 | REPVR ---
PROCEDURE INFORMATION: Exam: US First Trimester, Transabdominal Exam date and time: 03/30/21 (8:13pm) Age: 30 years old Clinical indication: female (at 7 weeks). Nausea and dizziness. TECHNIQUE: Imaging protocol: Real-time transabdominal obstetrical ultrasound of the maternal pelvis and a first trimester , less than 14 weeks 0 days, with image documentation. COMPARISON: U(S OB of 03/17/21 FINDINGS: The LMP is reported to be: 02/09/21 An early live intrauterine gestation is identified, approx. 6 weeks 6 days gestational age, based on the crown-rump length (CRL = 9 mm). Based on the CRL measurement, the JAJA = 11/17/21. Close correlation with the menstrual history is noted. heart rate is recorded at 138 bpm. A small yolk sac is visualized. The uterus is anteverted. Small subchorionic bleed (13 x 4 x 4 mm size), adjacent to the right lateral margin of the uterus. The maternal right ovary is not clearly visualized. The left ovary measures approx. 2.2 cm in size. There is no evidence of torsion on Doppler evaluation. No free pelvic fluid is appreciated. No solid adnexal mass. IMPRESSION: A single live IUP is seen, at 6 weeks 6 days gestational age (based on the CRL). heartbeat is recorded. Small subchorionic hemorrhage. No adnexal pathology is seen. No free pelvic fluid is noted. Electronically signed by: Nikia Spaulding On 03/30/2021 22:04:00 PM
[2021-03-30] MEDS ORDERED: AMPICILLIN SOD/SULBACTAM SOD 3 GM in D5W MINI-BAG PLUS 100 ML IV ONE (22:25)
[2021-03-30] MEDS ORDERED: POTASSIUM CHLORIDE 10 MEQ SR TABLET PO ONE (22:55)
[2021-03-30] MEDS ORDERED: ONDA4TAB6 PO (22:57)
[2021-03-30] MEDS ORDERED: PREN1CHW4 PO (22:57)
[2021-03-30] MEDS ORDERED: STRI1AER2 INH (22:57)
[2021-03-30] MEDS ORDERED: ARNU1INH INH (22:57)
[2021-03-30] MEDS ORDERED: PROAAER10 INH (22:57)
[2021-03-30] MEDS ORDERED: METOCLOPRAMIDE INJ 10MG/2ML VIAL (J2765 PER 1) IV PRN (23:00)
[2021-03-30] MEDS ORDERED: LR 1,000 ML IV SCH (23:00)
--- NOTE | 2021-03-30 23:08 | HPEPDOC ---
[facility] Medical History & Physical Date of Admission Mar 30, 2021 Date of Service: Mar 30, 2021 Primary Care Physician: Carlita Rhoades MD Attending Physician: JUDE WOODS MD History and Physical TIME OF SERVICE: 11:50 PM CHIEF COMPLAINT: Vomiting HISTORY OF PRESENT ILLNESS: Ms. Jackson, 30-year-old G6, P4, who is 7 weeks . Her has been uneventful up until Sunday when she developed epigastric abdominal pain along with nausea vomiting and diarrhea. She was evaluated in the ER and diagnosed with cholelithiasis, sent home with a prescription for Zofran, and instructed to follow-up with a surgeon to schedule an elective cholecystectomy later on during her . She is picked up the prescription for Zofran earlier on today and only took half a tablet, but she returned to the hospital because she is unable to keep anything down and thought that she might be dehydrated. She noticed that her urine was dark and orange. She denied having fevers or chills. REVIEW OF SYSTEMS: 10 point review of systems negative except as listed in HPI PAST MEDICAL/ SURGICAL HISTORY: Asthma, cholelithiasis, class I obesity, she denies having any surgeries SOCIAL HISTORY: She quit smoking on Sunday, used to drink alcohol socially prior to the , and does not use recreational drugs FAMILY HISTORY: She denies any having any family medical history ALLERGIES: Please see below. HOME MEDICATIONS: Please see below. PHYSICAL EXAMINATION: Vital Signs Date Time Temp Pulse Resp B/P (MAP) Pulse Ox O2 Delivery O2 Flow Rate FiO2 03/30/21 17:02 97.9 77 20 126/75 (92) 97 Room Air GENERAL APPEARANCE: well-nourished and developed / NAD HEENT: She does not have scleral icterus or conjunctival injection/MM pink but dry / she has a nose ring CARDIOVASCULAR: RRR/NMRG / no LE edema LUNGS: CTAB on RA ABDOMEN: contour convex / soft & she doesnt grimace w palpation MUSCULOSKELETAL: NCAT / ROMIx 4 extremities INTEGUMENT: not flushed diaphoretic or jaundice NEUROLOGICAL: CN 2-12 intact / speech not dysarthric PSYCHIATRIC: A&O x3 / able to understand and follow all commands LABORATORY DATA: IMAGING: Gallbladder ultrasound IMPRESSION: Large gallstone (1.6 cm diameter). Mildly thickened gallbladder wall. No biliary dilatation. The pancreas is obscured by bowel gas. Obstetric ultrasound IMPRESSION: A single live IUP is seen, at 6 weeks 6 days gestational age (based on the CRL). heartbeat is recorded. Small subchorionic hemorrhage. No adnexal pathology is seen. No free pelvic fluid is noted. MICROBIOLOGY: The respiratory panel is negative ASSESSMENT: Ms. Looney is a 30-year-old female with a history of Asthma, cholelithiasis, & class I obesity who is admitted for management of acute cholecystitis with cholelithiasis. PLAN: 1 acute cholecystitis with cholelithiasis Jessy Richard discussed the case with Dr. Tse who recommended admission n.p.o. and IV fluids Jessy also discussed the case with Dr. Sebastian who recommended Unasyn trending LFTs Plan: Admit to medical floor/n.p.o. / f/u FSBS Q6H while NPO / D5NS continue with Unasyn/trend LFTs/follow-up with Drs. Tse and Jaz in the morning 2 Hypokalemia secondary to vomiting Plan: Replete potassium follow-up repeat BMP and magnesium 3 Nausea vomiting and diarrhea Reglan is a category B drug I was unable to confirm which category Francia falls under She has received potassium and Reglan in the ER Plan: Continue with Reglan (I informed the patient of the risk of developing tardive dyskinesia as a result of taking Reglan and SHE verbalized understanding)/the daytime team may consider placing a Gyne consult in the morning/follow-up magnesium in the morning 3 Abnormal LFTs likely due to euthyroid sick syndrome Plan: Follow-up with PCP for repeat PFTs in about 6 or 7 weeks DVT PROPHYLAXIS: (With Lovenox which is a category B drug /although her Carla score is only 1 and pharmacological DVT prophylaxis is not indicated, she is which increases her risk for DVT therefore start pharmacological prophylaxis ) DISPOSITION: home after at least 2 midnight's stay LATE ENTRY #Worsening hypokalemia Plan: Switch to D5 NS with KCl and follow-up magnesium Home Medications Scheduled Fluticasone Furoate (Arnuity Ellipta) 100 Mcg Blst.w.dev, 1 PUFF INH DAILY Olodaterol HCl (Striverdi Respimat) 4 Gm Mist.inhal, 2 PUFFS INH DAILY Pnv No.103/Folic/Om3s/Fish Oil ( Gummies) 1 Each Tab.chew, 2 CHW PO DAILY Scheduled PRN Albuterol Sulfate (Proair Hfa) 8.5 Gm Hfa.aer.ad, 2 PUFF INH Q6H PRN for SHORTNESS OF BREATH Ondansetron (Ondansetron Odt) 4 Mg Tab.rapdis, 2 MG PO Q6H PRN for NAUSEA OR VOMITING Allergies Coded Allergies: No Known Allergies (Unverified , 12/06/20) A-FIB/CHADSVASC A-FIB History Current/History of A-Fib/PAF?: No Current PO Anticoag Therapy: No JUDE WOODS MD Mar 30, 2021 23:08
[2021-03-30 23:19] LABS: RSV AMPLIFICATION NEGATIVE (NEGATIVE)
[2021-03-31 00:19] LABS: PROTHROMBIN TIME 13.4 SECONDS (12.5-14.3)
[2021-03-31 00:20] LABS: PARTIAL THROMBOPLASTIN TIME 23.8 SECONDS (24.2-38.5)
[2021-03-31 00:50] LABS: ALBUMIN 3.2 GM/DL (3.2-5.2); ALT/SGPT 131 U/L (12-78); BILIRUBIN,TOTAL 1.2 MG/DL (0.2-1.0); BLOOD UREA NITROGEN 7 MG/DL (7-18); CALCIUM LEVEL 7.9 MG/DL (8.5-10.1); CARBON DIOXIDE LEVEL 24 MEQ/L (21-32); CHLORIDE LEVEL 105 MEQ/L (98-107); CREATININE FOR GFR 0.29 MG/DL (0.55-1.30); GLOMERULAR FILTRATION RATE > 60.0 (>60); GLUCOSE, FASTING 79 MG/DL (70-100); POTASSIUM SERUM 2.8 MEQ/L (3.5-5.1); SODIUM LEVEL 137 MEQ/L (136-145); TOTAL PROTEIN 5.6 GM/DL (6.4-8.2)
[2021-03-31] MEDS ORDERED: POTASSIUM CHLORIDE 10 MEQ SR TABLET PO ONE ×3 (02:05→11:00)
[2021-03-31] MEDS ORDERED: KCL 40MEQ IN D5/NS 1000ML 1,000 ML IV SCH (02:15)
[2021-03-31 02:26] LABS: MAGNESIUM LEVEL 1.9 MG/DL (1.8-2.4)
[2021-03-31] MEDS ORDERED: POTASSIUM CHLORIDE INJ 40 MEQ in LR 1,000 ML IV SCH (02:30)
[2021-03-31] MEDS: AMPICILLIN SOD/SULBACTAM SOD 3 GM in D5W MINI-BAG PLUS 100 ML IV SCH ×4 (05:03→22:24)
[2021-03-31 08:16] LABS: HEMOGLOBIN 13.7 g/dl (12.0-15.5); MEAN CORPUSCULAR HEMOGLOBIN 32.7 pg (27.0-33.0); MEAN CORPUSCULAR VOLUME 88.3 fl (80.0-96.0); PLATELET COUNT, AUTOMATED 187 10^3/uL (150-450); RED BLOOD COUNT 4.19 10^6/uL (4.00-5.40); WHITE BLOOD COUNT 6.9 10^3/uL (4.0-10.0)
[2021-03-31 08:31] LABS: INR 1.04; PROTHROMBIN TIME 13.8 SECONDS (12.5-14.3)
[2021-03-31 08:32] LABS: PARTIAL THROMBOPLASTIN TIME 23.8 SECONDS (24.2-38.5)
[2021-03-31 08:41] LABS: ALT/SGPT 123 U/L (12-78); BILIRUBIN,TOTAL 0.9 MG/DL (0.2-1.0); BLOOD UREA NITROGEN 5 MG/DL (7-18); CALCIUM LEVEL 7.9 MG/DL (8.5-10.1); CARBON DIOXIDE LEVEL 21 MEQ/L (21-32); CHLORIDE LEVEL 110 MEQ/L (98-107); CREATININE FOR GFR 0.27 MG/DL (0.55-1.30); GLOMERULAR FILTRATION RATE > 60.0 (>60); GLUCOSE, FASTING 85 MG/DL (70-100); MAGNESIUM LEVEL 1.8 MG/DL (1.8-2.4); POTASSIUM SERUM 3.1 MEQ/L (3.5-5.1); SODIUM LEVEL 139 MEQ/L (136-145); TOTAL PROTEIN 5.4 GM/DL (6.4-8.2)
[2021-03-31] MEDS: ENOXAPARIN 40MG/0.4ML SYRINGE (J1650 PER 10MG) SC SCH (09:55)
[2021-03-31] MEDS ORDERED: ONDANSETRON 4 MG TAB PO PRN (11:00)
--- NOTE | 2021-03-31 12:35 | IPNPDOC ---
Date Seen The patient was seen on 03/31/21. Progress Note SUBJECTIVE: Ms. Looney is a pleasant 30 year old female sitting comfortably in the hospital bed. She states that she does not currently feel epigastric pain or nausea. She presented to the Emergency dept yesterday for vomiting, diarrhea, nausea, lightheadedness, and suspected dehydration. She has felt some nausea today but no abdominal pain or lightheadedness. She has not vomited since yest erday but continues to have diarrhea. The episodes of diarrhea happen about once or twice an hour, and she describes the diarrhea as "watery and brown" in character. She lives with her mother, boyfriend, and four children. Her mother was ill for 24 hours (vomiting and diarrhea) after returning from [place] on 03/24/21; now resolved. In addition to the aforementioned symptoms Ms. Looney states that she has felt some discomfort with urination since she left the ED on 03/28/21. She denies fever, chills, fatigue, chest pain, shortness of breath, hematuria, or hematochezia. She has an oxygen saturation of 99% on room air. OBJECTIVE PHYSICAL EXAMINATION: VITAL SIGNS: Please see below. GENERAL: A well nourished female in no acute distress HEENT: PERRLA, EOMI, mucous membranes pink and dry, normal dentition, trachea midline CARDIOVASCULAR: Regular rate and rhythm, no murmurs, rubs, or gallops appr eciated RESPIRATORY: clear to auscultation bilaterally, no rhonchi, wheezes, or rales. Good inspiratory effort ABDOMINAL: soft, positive bowel sounds, no tenderness to palpation in all four quadrants, neg Huang's sign, neg McBurney sign, no guarding or rebound tenderness, no suprapubic tenderness. EXTREMITIES: no edema noted in bilateral lower extremities, no rashes or ulcerations noted PSYCHOLOGICAL: alert and oriented x 3, normal affect LABORATORY DATA, IMAGING STUDIES, MICROBIOLOGY: Please see below. Gallbladder u/s 03/30/21: Large gallstone (1.6 cm diameter). Mildly thickened gallbladder wall. No biliary dilatation. The pancreas is obscured by bowel gas. Obstetrics u/s 03/30/21: A single live IUP is seen, at 6 weeks 6 days gestational age (based on the CRL). heartbeat is recorded. Small subchorionic hemorrhage. No adnexal pathology is seen. No free pelvic fluid is noted. Echocardiogram: n/a DVT prophylaxis ordered?: yes, continue lovenox ASSESSMENT AND PLAN: Ms. Looney is a 30 year old female with past medical history of asthma, obesity, and cholelithiasis who presented to the ED for nausea, vomiting, lightheadedness, diarrhea, and suspected dehydration was found to have gallbladder wall thickening, a gallstone, and hypokalemia concerning for acute cholecystitis, cholelithiasis, and dehydration. PROBLEMS: Acute cholecystitis with cholelithiasis (16mm stone) -We consulted Dr. Sebastian and appreciate his input at this time -Gallbladder u/s results as above -The patient is advised to have elective cholecystectomy in second trimester or after giving . -continue on unasyn, this is beneficial for decreasing gallbladder inflammation and treating UTI. -Will continue to monitor WBC and watch for fever development. Diarrhea -Patient's mother was sick recently (vomiting/diarrhea 24 hour period) after traveling to [place] and returning a week ago. -Patient described diarrhea as watery and brown in character. -She denies recent antibiotic use -She reports having 1-2 episodes every hour. -Ordered O & P stool panel -may be secondary to gastroenteritis Nausea/vomiting -Patient was given 1L of Lactated ringers -d/c 40meq KCL in D5W/NS 1L bag -advanced patient diet to low fat, will monitor her tolerance -d/c reglan and started zofran -patient has not vomited since yesterday and is not currently nauseous. Hypokalemia -Patient's last level was 3.4, ordered repeat AM labs -Supplemented patient with oral potassium -ordered magnesium levels for AM Urinary tract infection -Urinalysis 03/30/21 showed 2+ leukocyte esterase and 55WBC -Patient has had dysuria that started 03/28/21 -Patient states she noticed her urine looked dark yesterday -continue unasyn -Patient denies fever and does not have an elevated WBC Elevated free T4 -may be a reactive hyperthyroidism -ordered repeat Free T4 and free T3 for AM -Patient has appt with PCP 04/05/21 Asthma -Patient uses an albuterol inhaler at home as needed Obesity -BMI 32.3 -Started patient on low fat diet -Patient can follow up on this with PCP DVT prophylaxis: lovenox DISPOSITION: Patient is 7 weeks and would benefit from elective cholecystectomy either in second trimester of or ideally after she gives . The patient is no longer experiencing abdominal pain or vomiting. We started patient on low fat diet and will monitor how she is tolerating this. We will continue to monitor her potassium levels. Patient has outpatient appts on 04/05/[address] Rhoades and her [employer] Dr. Soto. GME ATTESTATION My faculty preceptor for this patient encounter was physically present during the encounter and was fully available. All aspects of the patient interview, examination, medical decision making process, and medical care plan development were reviewed and approved by the faculty preceptor. The faculty preceptor is aware and concurs with the plan as stated in the body of this note and will attest to such by his/her cosignature. VS, I&O, 24H, Fishbone Vital Signs/I&O Vital Signs Date Time Temp Pulse Resp B/P (MAP) Pulse Ox O2 Delivery O2 Flow Rate FiO2 03/31/21 09:56 98.9 66 16 126/64 (84) 95 Room Air I&O- Last 24 Hours up to 6 AM 03/31/21 06:00 Intake Total 1400 ml Balance 1400 ml Laboratory Data 24H LABS Laboratory Tests 2 03/30/21 18:06: Immature Granulocyte % (Auto) 0.2, Neutrophils (%) (Auto) 66.1H, Lymphocytes (%) (Auto) 18.7L, Monocytes (%) (Auto) 10.3H, Eosinophils (%) (Auto) 4.5H, Basophils (%) (Auto) 0.2, Neutrophils # (Auto) 5.7, Lymphocytes # (Auto) 1.6, Monocytes # (Auto) 0.9H, Eosinophils # (Auto) 0.4, Basophils # (Auto) 0.0, Nucleated Red Blood Cells % (auto) 0.0, Urine Color WILLIAM, Urine Appearance CLOUDYH, Urine pH 5.0, Urine Specific Minetto 1.035, Urine Protein 2+H, Urine Glucose (Auto)(UA) NEGATIVE, Urine Ketones (Auto) 2+H, Urine Blood NEGATIVE, Urine Nitrite NEGATIVE, Urine Bilirubin 1+H, Urine Urobilinogen 4.0H, Urine Leukocyte Esterase (Auto) 2+H, Urine WBC (Auto) 55H, Urine RBC (Auto) 3, Urine Hyaline Casts (Auto) 0, Urine Bacteria (Auto) NEGATIVE, Urine Squamous Epithelial Cells 30, Urine Mucus (Auto) LARGE, Urine Sperm (Auto) , Anion Gap 12, Glomerular Filtration Rate > 60.0, Calcium Level 8.4L, Magnesium Level 1.9, Total Bilirubin 1.3#H, Direct Bilirubin 0.7H, Aspartate Amino Transf (AST/SGOT) 68H, Alanine Aminotransferase (ALT/SGPT) 146H, Alkaline Phosphatase 63, Total Creatine Kinase 54, Creatine Kinase MB < 1.0, Creatine Kinase MB Relative Index 1.85, Troponin I < 0.02, Total Protein 6.3L, Albumin 3.4, Albumin/Globulin Ratio 1.2, Lipase 66L, Thyroid Stimulating Hormone (TSH) 0.264L, Free Thyroxine 1.95H, Human Chorionic Gonadotropin, Quant [id number] 03/30/21 22:24: Coronavirus (COVID-19)(PCR) NEGATIVE, Influenza Type A (RT-PCR) NEGATIVE, Influenza Type B (RT-PCR) NEGATIVE, Respiratory Syncytial Virus (PCR) NEGATIVE 03/30/21 23:55: Anion Gap 8, Glomerular Filtration Rate > 60.0, Calcium Level 7.9L, Total Bilirubin 1.2H, Aspartate Amino Transf (AST/SGOT) 60H, Alanine Aminotransferase (ALT/SGPT) 131H, Alkaline Phosphatase 57, Total Protein 5.6L, Albumin 3.2, Albumin/Globulin Ratio 1.3, Prothrombin Time 13.4, Prothromb Time International Ratio 1.00, Activated Partial Thromboplast Time 23.8L 03/31/21 08:05: Nucleated Red Blood Cells % (auto) 0.0, Anion Gap 8, Glomerular Filtration Rate > 60.0, Calcium Level 7.9L, Magnesium Level 1.8, Total Bilirubin 0.9, Aspartate Amino Transf (AST/SGOT) 50H, Alanine Aminotransferase (ALT/SGPT) 123H, Alkaline Phosphatase 54, Total Protein 5.4L, Albumin 3.0L, Albumin/Globulin Ratio 1.3, Prothrombin Time 13.8, Prothromb Time International Ratio 1.04, Activated Partial Thromboplast Time 23.8L CBC/BMP Laboratory Tests 03/30/21 18:06 03/30/21 23:55 03/31/21 08:05 SANDOVAL MACK DO Mar 31, 2021 12:35
--- NOTE | 2021-03-31 12:41 | CR.PDOC ---
General Date of Consultation: Mar 31, 2021 Attending Physician: COLTEN SEBASTIAN MD Consultation General surgery. Dr. Sebastian HISTORY OF PRESENT ILLNESS: The patient is a 30-year-old female currently 7 weeks . The patient states she had been feeling well until Sunday when she developed some epigastric abdominal pain with vomiting. She states initially she did not have diarrhea but she began to have diarrhea on Sunday. She was seen in the emergency department on 03/28 and diagnosed with choleli thiasis, discharged with a prescription for Zofran as needed. She returned to the emergency department 03/30 as she was still having nausea and vomiting and diarrhea was watery. She denies any fevers or chills, denies any melena, hematochezia, rectal bleeding. She states she has not had abdominal pain since she has been in the emergency room. She has not had vomiting. She has had some watery stools. She states her mother also had an illness where she had vomiting and diarrhea after returning from some travel. General surgery is consulted for cholelithiasis. ALLERGIES: Please see below. HOME MEDICATIONS: Please see below. PAST MEDICAL HISTORY: Asthma History of cholelithiasis BMI 32.3 PAST SURGICAL HISTORY: Patient denies SOCIAL HISTORY: Previous smoker REVIEW OF SYSTEMS: As noted in HPI otherwise 10 point review of systems negative. PHYSICAL EXAMINATION: VITAL SIGNS: Please see below. GENERAL APPEARANCE: Resting in bed, appears in no acute distress. HEENT: MMM. RESPIRATORY: CTA. CARDIOVASCULAR: RRR ABDOMEN: Soft, nondistended, currently nontender, no tenderness in the right upper quadrant or epigastric area. No guarding, rebound, or grimacing at this time. EXTREMITIES: No edema LABORATORY DATA: WBC 6.9, hemoglobin 13.7. AST 50, ALT 123, downtrending. Potassium 3.1 this morning, supplement as ordered per hospitalist. ASSESSMENT/PLAN: Vomiting/diarrhea. The patient reports her mother also had a recent illness after returning from some travel with vomiting and diarrhea. Symptoms could possibly be related to gastroenteritis, will request GI panel to further evaluate. IV fluids, IV antibiotics, Zofran as needed as per hospitalist Cholelithiasis. The patient is reviewed and examined as per Dr. Sebastian. Imaging is reviewed as per Dr. Sebastian. Gallstones noted with mildly thickened gallbladder wall thickness, 3.2 mm. No pericholecystic fluid appreciated, common bile duct 3.5 mm. No urgent need for surgical intervention at this time, will monitor symptoms. Discussed with the patient would like to avoid surgery during the first or third trimester if possible. Vital Signs/I&O Vital Signs Date Time Temp Pulse Resp B/P (MAP) Pulse Ox O2 Delivery O2 Flow Rate FiO2 03/31/21 09:56 98.9 66 16 126/64 (84) 95 Room Air I&O- Last 24 Hours up to 6 AM 03/31/21 06:00 Intake Total 1400 ml Balance 1400 ml Laboratory Data Labs 24H Laboratory Tests 2 03/30/21 18:06: Immature Granulocyte % (Auto) 0.2, Neutrophils (%) (Auto) 66.1H, Lymphocytes (%) (Auto) 18.7L, Monocytes (%) (Auto) 10.3H, Eosinophils (%) (Auto) 4.5H, Basophils (%) (Auto) 0.2, Neutrophils # (Auto) 5.7, Lymphocytes # (Auto) 1.6, Monocytes # (Auto) 0.9H, Eosinophils # (Auto) 0.4, Basophils # (Auto) 0.0, Nucleated Red Blood Cells % (auto) 0.0, Urine Color WILLIAM, Urine Appearance CLOUDYH, Urine pH 5.0, Urine Specific [place] 1.035, Urine Protein 2+H, Urine Glucose (Auto)(UA) NEGATIVE, Urine Ketones (Auto) 2+H, Urine Blood NEGATIVE, Urine Nitrite NEGATIVE, Urine Bilirubin 1+H, Urine Urobilinogen 4.0H, Urine Leukocyte Esterase (Auto) 2+H, Urine WBC (Auto) 55H, Urine RBC (Auto) 3, Urine Hyaline Casts (Auto) 0, Urine Bacteria (Auto) NEGATIVE, Urine Squamous Epithelial Cells 30, Urine Mucus (Auto) LARGE, Urine Sperm (Auto) , Anion Gap 12, Glomerular Filtration Rate > 60.0, Calcium Level 8.4L, Magnesium Level 1.9, Total Bilirubin 1.3#H, Direct Bilirubin 0.7H, Aspartate Amino Transf (AST/SGOT) 68H, Alanine Aminotransferase (ALT/SGPT) 146H, Alkaline Phosphatase 63, Total Creatine Kinase 54, Creatine Kinase MB < 1.0, Creatine Kinase MB Relative Index 1.85, Troponin I < 0.02, Total Protein 6.3L, Albumin 3.4, Albumin/Globulin Ratio 1.2, Lipase 66L, Thyroid Stimulating Hormone (TSH) 0.264L, Free Thyroxine 1.95H, Human Chorionic Gonadotropin, Quant [id number] 03/30/21 22:24: Coronavirus (COVID-19)(PCR) NEGATIVE, Influenza Type A (RT-PCR) NEGATIVE, Influenza Type B (RT-PCR) NEGATIVE, Respiratory Syncytial Virus (PCR) NEGATIVE 03/30/21 23:55: Anion Gap 8, Glomerular Filtration Rate > 60.0, Calcium Level 7.9L, Total Bilirubin 1.2H, Aspartate Amino Transf (AST/SGOT) 60H, Alanine Aminotransferase (ALT/SGPT) 131H, Alkaline Phosphatase 57, Total Protein 5.6L, Albumin 3.2, Albumin/Globulin Ratio 1.3, Prothrombin Time 13.4, Prothromb Time International Ratio 1.00, Activated Partial Thromboplast Time 23.8L 03/31/21 08:05: Nucleated Red Blood Cells % (auto) 0.0, Anion Gap 8, Glomerular Filtration Rate > 60.0, Calcium Level 7.9L, Magnesium Level 1.8, Total Bilirubin 0.9, Aspartate Amino Transf (AST/SGOT) 50H, Alanine Aminotransferase (ALT/SGPT) 123H, Alkaline Phosphatase 54, Total Protein 5.4L, Albumin 3.0L, Albumin/Globulin Ratio 1.3, Prothrombin Time 13.8, Prothromb Time International Ratio 1.04, Activated Partial Thromboplast Time 23.8L CBC/BMP Laboratory Tests 03/30/21 18:06 03/30/21 23:55 03/31/21 08:05 Allergies Coded Allergies: No Known Allergies (Unverified , 12/06/20) Home Medications Scheduled Fluticasone Furoate (Arnuity Ellipta) 100 Mcg Blst.w.dev, 1 PUFF INH DAILY, (Reported) Olodaterol HCl (Striverdi Respimat) 4 Gm Mist.inhal, 2 PUFFS INH DAILY, (Reported) Pnv No.103/Folic/Om3s/Fish Oil ( Gummies) 1 Each Tab.chew, 2 CHW PO DAILY, (Reported) Scheduled PRN Albuterol Sulfate (Proair Hfa) 8.5 Gm Hfa.aer.ad, 2 PUFF INH Q6H PRN for SHORTN ESS OF BREATH, (Reported) Ondansetron (Ondansetron Odt) 4 Mg Tab.rapdis, 2 MG PO Q6H PRN for NAUSEA OR VOMITING, (Reported) Attending Note Attending Note I saw and examined Ms. Looney with Ms. Pastrana. Reviewed with her history and performed physical examination. Her history is more in line with acute gastroenteritis. She reports she had exposure to her mom I believe who was in [place] and had GI symptoms when she returned and subsequently she did have GI symptoms. Her symptoms are more prominent with initially nausea and then diarrhea. She was seen Sunday in the ER. She returned because of the diarrhea and not of the abdominal pain. Throughout this she was able to hold things down. There is no evidence of acute cholecystitis on ultrasound, just cholelithiasis. At the time to examine her she is nontender over the epigastric and right upper quadrant area. She reports she had worsening diarrhea which may be more related to the antibiotics though I do suggest we check the GI panel. This most likely will be negative since she has been started on antibiotics. She can be advanced to low-fat diet. I discussed with her my protocol and generalized algorithm for treatment of symptomatic gallstones during . If symptoms are not severe and not affecting her nor her , would prefer to take the gallbladder out . If symptoms are affecting her or her , the ideal time to take her gallbladder out will be at the second trimester. Nina Pastrana Mar 31, 2021 12:41 COLTEN SEBASTIAN MD Apr 01, 2021 10:23
[2021-03-31 13:48] LABS: ALT/SGPT 122 U/L (12-78); BILIRUBIN,TOTAL 0.8 MG/DL (0.2-1.0); BLOOD UREA NITROGEN 4 MG/DL (7-18); CALCIUM LEVEL 7.8 MG/DL (8.5-10.1); CARBON DIOXIDE LEVEL 22 MEQ/L (21-32); CHLORIDE LEVEL 110 MEQ/L (98-107); GLOMERULAR FILTRATION RATE > 60.0 (>60); GLUCOSE, FASTING 83 MG/DL (70-100); POTASSIUM SERUM 3.4 MEQ/L (3.5-5.1); SODIUM LEVEL 140 MEQ/L (136-145); TOTAL PROTEIN 5.6 GM/DL (6.4-8.2)
[2021-03-31 14:00] VITALS: BP 129/68
[2021-03-31 22:00] VITALS: BP 120/66
[2021-03-31] MEDS ORDERED: ALBUTEROL 90 MCG/ACT 8GM HFA INHALER INH PRN (22:55)
[2021-04-01] MEDS: AMPICILLIN SOD/SULBACTAM SOD 3 GM in D5W MINI-BAG PLUS 100 ML IV SCH ×2 (04:43→11:12)
[2021-04-01 06:00] VITALS: BP 116/66
[2021-04-01 06:07] LABS: HEMATOCRIT 37.8 % (36.0-47.0); HEMOGLOBIN 13.7 g/dl (12.0-15.5); MEAN CORPUSCULAR HEMOGLOBIN 32.5 pg (27.0-33.0); MEAN CORPUSCULAR HGB CONC 36.2 g/dl (32.0-36.5); MEAN CORPUSCULAR VOLUME 89.6 fl (80.0-96.0); PLATELET COUNT, AUTOMATED 174 10^3/uL (150-450); RED BLOOD COUNT 4.22 10^6/uL (4.00-5.40); WHITE BLOOD COUNT 7.8 10^3/uL (4.0-10.0)
[2021-04-01 06:43] LABS: ALBUMIN 2.9 GM/DL (3.2-5.2); ALT/SGPT 147 U/L (12-78); BILIRUBIN,TOTAL 0.8 MG/DL (0.2-1.0); BLOOD UREA NITROGEN 4 MG/DL (7-18); CALCIUM LEVEL 8.1 MG/DL (8.5-10.1); CARBON DIOXIDE LEVEL 20 MEQ/L (21-32); CHLORIDE LEVEL 112 MEQ/L (98-107); CREATININE FOR GFR 0.25 MG/DL (0.55-1.30); FREE T3 2.8 PG/ML (2.2-4.0); GLOMERULAR FILTRATION RATE > 60.0 (>60); GLUCOSE, FASTING 84 MG/DL (70-100); MAGNESIUM LEVEL 1.8 MG/DL (1.8-2.4); POTASSIUM SERUM 3.4 MEQ/L (3.5-5.1); SODIUM LEVEL 141 MEQ/L (136-145); THYROID STIMULATING HORMONE 0.158 uIU/ML (0.358-3.740); TOTAL PROTEIN 5.4 GM/DL (6.4-8.2)
[2021-04-01 06:44] LABS: ATYPICAL LYMPH 2 % (0-5); EOSINOPHILS 5 % (0-3); LYMPHOCYTES 34 % (16-44); MONOCYTES 5 % (0-5); NEUTROPHILS 53 % (28-66); PLATELET ESTIMATE NORMAL (NORMAL)
[2021-04-01] MEDS ORDERED: POTASSIUM CHLORIDE 10 MEQ SR TABLET PO ONE (08:00)
[2021-04-01] MEDS ORDERED: ADVAIR HFA 45/21MCG INHALER INH SCH (08:00)
[2021-04-01] MEDS ORDERED: OLODATEROL INH SCH (09:00)
[2021-04-01] MEDS ORDERED: ARNUITY ELLIPTA 100 MCG INH SCH (09:00)
[2021-04-01] MEDS: ENOXAPARIN 40MG/0.4ML SYRINGE (J1650 PER 10MG) SC SCH (09:00)
[2021-04-01 10:00] VITALS: BP 98/58
--- NOTE | 2021-04-01 10:19 | IPNPDOC ---
Text Note Date of Service The patient was seen on 04/01/21. NOTE Patient is seen and examined. She reports she is feeling mildly better. She had 8 loose bowel movements yesterday only 1 so far today. She had some crampy abdominal pain when she tried to eat yesterday but that went away on its own and currently not having any discomfort. GI panel remains pending. Otherwise she is afebrile and does not look toxic nor sick. Vital signs stable On examination looks comfortable Abdomen is soft, nondistended, obese. No tenderness over the epigastric nor right upper quadrant area. Labs were reviewed. No leukocytosis. The mild rise in bilirubin has normalized. I think she has chronic mild elevation of her AST and ALT. Impression and plan Intrauterine she is 7 weeks age of gestation Cholelithiasis. I do not believe she has cholecystitis. Her symptoms are more consistent with gastroenteritis with prominence of the diarrhea. GI panel remains pending. She can be advanced to low-fat, low residue diet. I did discuss with her generalized management of symptomatic gallstones during . My preference is to have her go through the and take the gallbladder out when she is recovered from her childbirth if the symptoms are not severe enough to affect her or her . If she has severe symptoms that is affecting her or her , ideally would plan for cholecystectomy at the second trimester. She can follow-up with me in the clinic. I do not believe right now that her symptoms are from her gallstones. VS,Fishbone, I+O VS, Fishbone, I+O Laboratory Tests 03/31/21 12:54 04/01/21 05:50 Vital Signs Date Time Temp Pulse Resp B/P (MAP) Pulse Ox O2 Delivery O2 Flow Rate FiO2 04/01/21 06:00 98.5 66 17 116/66 (83) 96 Room Air I&O- Last 24 Hours up to 6 AM 04/01/21 05:59 Intake Total 1445 ml Output Total 50 ml Balance 1395 ml COLTEN ADAMS MD Apr 01, 2021 10:19
[2021-04-01 13:17] LABS: HEPATITIS A ANTIBODY IGM NEGATIVE (NEGATIVE); HEPATITIS B CORE ANTIBODY IGM NEGATIVE (NEGATIVE); HEPATITIS B SURFACE ANTIBODY NEGATIVE (POSITIVE); HIV 1&2 SCREEN CENTAUR NEGATIVE (NEGATIVE)
[2021-04-01] MEDS ORDERED: NS 1,000 ML IV ONE (13:20)
[2021-04-01] MEDS ORDERED: AUGM500T34 PO (14:37)
[2021-04-01 15:00] VITALS: BP 133/69
--- NOTE | 2021-04-01 18:45 | DS.PDOC ---
Discharge Summary General Date of Admission Mar 30, 2021 at 17:04 Date of Discharge 04/01/21 Primary Care Physician: Carlita Rhoades MD Attending Physician: DESIRE MOON MD Discharge Summary PROCEDURES PERFORMED DURING STAY: None ADMITTING DIAGNOSES: Asthma Obesity Cholelithiasis DISCHARGE DIAGNOSES: Acute cholecystitis with cholelithiasis Gastroenteritis Urinary tract infection Hyperthyroidism Asthma Obesity COMPLICATIONS/CHIEF COMPLAINT: Nausea, Dizziness. HISTORY OF PRESENT ILLNESS: Ms. Looney is a female who is 7 weeks who presented to the ED for epigastric pain, nausea, vomiting, diarrhea, lightheadedness, and suspected dehydration. She visited the ER on 03/28/21 for epigastric pain, nausea, and vomiting after she at a [employer] lunchable one night prior. She was found to have cholelithiasis and was sent home with francisco jfran and instructions to follow up with general surgery for an elective cholecystectomy after the of her child or during the second trimester. She has been unable to eat much in the last 24 hours and was worried that she was dehydrated because she noticed her urine became dark yellow/orange in color. She also admits to having some discomfort with urination since Sunday. Her diarrhea started on 03/28/21 and she states she is having at least once episode of brown watery diarrhea per hour. She states her mother recently returned from [place] and had similar symptoms (vomiting and diarrhea) over the weekend which have now resolved. She denies syncope, chest pain, shortness of breath, fevers, chills, hematuria, or hematochezia. She denies recent antibiotic use or recent travel. HOSPITAL COURSE: Acute cholecystitis with cholelithiasis (16mm stone) -We consulted Dr. Sebastian who recommended outpatient surgery in 2nd trimester or after giving -Patient was able to tolerate a low fat diet -Gallbladder u/s results: Mildly thickened gallbladder wall. No biliary dilatation. Large 16mm gallstone -Gave patient unasyn x 3 days in hospital and discharged with four days of Augmentin -The patient did not have a fever or elevated WBC during hospitalization Gastroenteritis -Patient's mother was sick recently (vomiting/diarrhea 24 hour period) after traveling to [place] and returning a week ago. -Patient had 1 episode of brown watery diarrhea every hour until 2:00 on 04/01/21 at which time she did not have another bowel movement until 8:00 which was solid. -A GI panel and ova and parasite test were ordered. These tests came back positive for rotavirus and cryptosporidium. -The patient was given fluids to stay hydrated -We spoke to Dr. Avalos who recommended supplemental treatment at this time in the form of hydration. The patient has a follow up appt with her PCP on 04/05/21. The treatment for cryptosporidium is contraindicated in the first trimester of and the patients diarrhea is lessening in frequency. -After testing positive for crytosporidium she was tested for HIV, Hepatitis A, B, and C, Syphilis, chlamydia, gonorrhea, and trichomonas. She tested negative for HIV, Hepatitis A, B, and C, and syphilis. Her chlamydia, gonorrhea, and trichomonas labs are still pending. Nausea/vomiting -The patient was hydrated during the duration of her stay and tolerated a low fat diet well. -She was given ondansetron in the ER but did not require it for the rest of her stay. -She did not experience nausea or vomiting after being admitted to the hospital Hypokalemia -This was likely due to vomiting and diarrhea -Patient presented with hypokalemia and had a level as low as 2.8. -She was supplemented with oral and IV potassium during the hospitalization -Her magnesium levels were wnl Urinary tract infection -Urinalysis 03/30/21 showed 2+ leukocyte esterase and 55WBC -Patient's dysuria improved during hospitalization and urine appear clear to yellow -Gave patient unasyn x 3 days in hospital and discharged with four days of Augmentin -Patient denies fever and does not have an elevated WBC Hyperthyroid -Her TSH was low and free T4 was elevated -This needs to be address soon in an outpatient setting -Patient has appt with PCP 04/05/21 Asthma -Patient used her albuterol inhaler during hospitalization and will continue using at home -She was supplemented with Advair to replace her other two inhalers. Obesity -BMI 32.3 -Started patient on low fat diet -Patient can follow up on this with PCP DISCHARGE MEDICATIONS: Please see below. ALLERGIES: Please see below. PHYSICAL EXAMINATION ON DISCHARGE: VITAL SIGNS: Please see below. GENERAL: Well nourished female sitting in bed in no acute distress HEENT: Normocephalic, atraumatic, PERRLA, mucous membranes moist and pink NECK: trachea midline, no lymphadenopathy CARDIOVASCULAR EXAMINATION: Regular rate and rhythm, no murmus, rubs, or gallops noted RESPIRATORY EXAMINATION: Clear to auscultation bilaterally, no wheezes, rales, or rhonchi ABDOMINAL EXAMINATION: soft, non distended, non tender to deep palpation in all four quadrants, no organomegaly noted EXTREMITIES: no lower extremity edema noted, no ulcerations or rashes PSYCHIATRIC EXAMINATION: normal affect, alert and oriented x 3 LABORATORY DATA: Please see below. IMAGING: Gallbladder u/s 03/30/21: Large gallstone (1.6 cm diameter). Mildly thickened gallbladder wall. No biliary dilatation. The pancreas is obscured by bowel gas. Obstetrics u/s 03/30/21: A single live IUP is seen, at 6 weeks 6 days gestational age (based on the CRL). heartbeat is recorded. Small subchorionic hemorrhage. No adnexal pathology is seen. No free pelvic fluid is noted. PROGNOSIS: Good ACTIVITY: As tolerated DIET: Low fat diet DISCHARGE PLAN: Discharge to home DISPOSITION: Patient is being discharged home and is able to take care of self. DISCHARGE INSTRUCTIONS: 1. Follow up with Dr. Rhoades (PCP) and Dr. Soto ([employer]) on 04/05/21 2. Take antibiotics for UTI and to decrease gallbladder inflammation 3. Follow up with Dr. Sebastian (General surgeon) for cholecystectomy after of child 4. Stay hydrated and eat low fat diet ITEMS TO FOLLOWUP ON ON OUTPATIENT: 1. Urinary tract infection 2. Hyperthyroidism 3. Cholecystitis- elective surgery 2nd trimester or after of child 4. Cessation of diarrhea DISCHARGE CONDITION: Stable TIME SPENT ON DISCHARGE: Greater than 25 minutes. Vital Signs/I&Os Vital Signs Date Time Temp Pulse Resp B/P (MAP) Pulse Ox O2 Delivery O2 Flow Rate FiO2 04/01/21 15:00 77 133/69 (90) 04/01/21 10:00 97.4 18 97 Room Air I&O- Last 24 Hours up to 6 AM 04/01/21 06:00 Intake Total 1595 ml Output Total 50 ml Balance 1545 ml Laboratory Data Labs 24H Laboratory Tests 2 04/01/21 05:50: Neutrophils (%) (Auto) , Nucleated Red Blood Cells % (auto) 0.0, Neutrophils 53, Band Neutrophils 1, Lymphocytes (Manual) 34, Monocytes (Manual) 5, Eosinophils (Manual) 5H, Atypical Lymphocytes 2, Red Blood Cell Morphology NORMAL, Platelet Estimate NORMAL, Anion Gap 9, Glomerular Filtration Rate > 60.0, Calcium Level 8.1L, Magnesium Level 1.8, Total Bilirubin 0.8, Aspartate Amino Transf (AST/SGOT) 77H, Alanine Aminotransferase (ALT/SGPT) 147H, Alkaline Phosphatase 52, Total Protein 5.4L, Albumin 2.9L, Albumin/Globulin Ratio 1.2, Thyroid Stimulating Hormone (TSH) 0.158L, Free Thyroxine 1.60H, Free Triiodothyronine 2.8 04/01/21 08:17: 04/01/21 11:50: Syphilis Serology NONREACTIVE, Hepatitis A IgM Antibody NEGATIVE, Hepatitis B Surface Antibody NEGATIVE, Hepatitis B Core IgM Antibody NEGATIVE, Hepatitis C Antibody Index 0.0, HIV Antigen/Antibody Combo Qual NEGATIVE CBC/BMP Laboratory Tests 04/01/21 05:50 Microbiology Microbiology 04/01/21 Gastrointestinal Tract Panel (PCR) - Final, Complete Cryptosporidium Sp Rotavirus A Discharge Medications Scheduled Amoxicillin/Potassium Clav (Augmentin 500-125 Tablet) 1 Each Tablet, 500 MG PO TID Take one tablet by mouth three times per day for a total of four days. Fluticasone Furoate (Arnuity Ellipta) 100 Mcg Blst.w.dev, 1 PUFF INH DAILY, (Reported) Olodaterol HCl (Striverdi Respimat) 4 Gm Mist.inhal, 2 PUFFS INH DAILY, (Reported) Pnv No.103/Folic/Om3s/Fish Oil ( Gummies) 1 Each Tab.chew, 2 CHW PO DAILY, (Reported) Scheduled PRN Albuterol Sulfate (Proair Hfa) 8.5 Gm Hfa.aer.ad, 2 PUFF INH Q6H PRN for SHORTNESS OF BREATH, (Reported) Ondansetron (Ondansetron Odt) 4 Mg Tab.rapdis, 2 MG PO Q6H PRN for NAUSEA OR VOMITING, (Reported) Allergies Coded Allergies: No Known Allergies (Unverified , 12/06/20) SANDOVAL MACK DO Apr 01, 2021 18:45
== END 2021-04-01 15:26 | disposition home or self-care (01) | DRG 566 ==
LOC: M ED 17:01 → M ED INP 17:04 → ENRESERV 03-31 11:50 → M MSPAV 03-31 13:32
PROVIDERS: ADMIT Internal Medicine; ATTEND Internal Medicine
DX: O99.611 Diseases of the digestive system complicating pregnancy, first trimester (principal); A07.2 Cryptosporidiosis; E66.9 Obesity, unspecified; A08.0 Rotaviral enteritis; E87.6 Hypokalemia; Z3A.01 Less than 8 weeks gestation of pregnancy; J45.909 Unspecified asthma, uncomplicated; K80.20 Calculus of gallbladder without cholecystitis without obstruction; E07.81 Sick-euthyroid syndrome; Z20.822 Contact with and (suspected) exposure to COVID-19; Z79.899 Other long term (current) drug therapy; O99.211 Obesity complicating pregnancy, first trimester; O23.41 Unspecified infection of urinary tract in pregnancy, first trimester; O99.511 Diseases of the respiratory system complicating pregnancy, first trimester; O99.281 Endocrine, nutritional and metabolic diseases complicating pregnancy, first trimester

== ENCOUNTER → 2021-06-07 | Outpatient (REF) | payer OTHER ==
[~2021-06-07] MED LIST changes: +ARNU1INH INH; +AUGM500T34 PO; +PREN1CHW4 PO; +PROAAER10 INH; +STRI1AER2 INH
== END ==
LOC: M SFHCPLAZ 10:18
PROVIDERS: ATTEND Family Medicine
DX: E78.5 Hyperlipidemia, unspecified (principal); Z86.39 Personal history of other endocrine, nutritional and metabolic disease; Z68.35 Body mass index [BMI] 35.0-35.9, adult; O09.42 Supervision of pregnancy with grand multiparity, second trimester

== ENCOUNTER → 2021-06-07 | Outpatient (CLI) | payer OTHER ==
[2021-06-07 13:38] LABS: BASO % 0.3 % (0.0-1.0); EOS # 0.3 10^3/uL (0.0-0.5); EOS % 2.4 % (0.0-3.0); HEMATOCRIT 36.1 % (36.0-47.0); HEMOGLOBIN 12.5 g/dl (12.0-15.5); LYMPH # 3.6 10^3/uL (1.5-5.0); LYMPH % 32.9 % (24.0-44.0); MEAN CORPUSCULAR HEMOGLOBIN 32.3 pg (27.0-33.0); MEAN CORPUSCULAR HGB CONC 34.6 g/dl (32.0-36.5); MEAN CORPUSCULAR VOLUME 93.3 fl (80.0-96.0); MONO # 0.7 10^3/uL (0.0-0.8); MONO % 6.3 % (2.0-8.0); NEUTROPHILS # 6.3 10^3/uL (1.5-8.5); NEUTROPHILS % 57.6 % (36.0-66.0); PLATELET COUNT, AUTOMATED 200 10^3/uL (150-450); RED BLOOD COUNT 3.87 10^6/uL (4.00-5.40); WHITE BLOOD COUNT 10.9 10^3/uL (4.0-10.0)
[2021-06-07 14:05] LABS: HEMOGLOBIN A1c 4.9 %
[2021-06-07 14:10] LABS: BLOOD UREA NITROGEN 5 MG/DL (7-18); CALCIUM LEVEL 8.9 MG/DL (8.5-10.1); CARBON DIOXIDE LEVEL 26 MEQ/L (21-32); CHLORIDE LEVEL 107 MEQ/L (98-107); CHOLESTEROL LEVEL 205 MG/DL (<200); CHOLESTEROL RISK RATIO 4.019 (<5); GLOMERULAR FILTRATION RATE > 60.0 (>60); GLUCOSE, FASTING 80 MG/DL (70-100); HDL CHOLESTEROL 51 MG/DL (>40); LDL CHOLESTEROL 124 MG/DL (<100); NON-HDL-C 154 MG/DL; POTASSIUM SERUM 3.5 MEQ/L (3.5-5.1); SODIUM LEVEL 140 MEQ/L (136-145); TRIGLYCERIDES LEVEL 148 MG/DL (<150)
== END ==
LOC: M PLALAB 10:22
PROVIDERS: ATTEND Student in an Organized Health Care Education/Training Program
DX: E78.5 Hyperlipidemia, unspecified (principal)

== ENCOUNTER → 2021-08-16 | Outpatient (CLI) | payer OTHER ==
[~2021-08-16] MED LIST changes: +ACET-683 PO; +ALBU8.5H; +IBUP-1022 PO
[2021-08-16 10:49] LABS: HEMATOCRIT 36.6 % (36.0-47.0); HEMOGLOBIN 12.7 g/dl (12.0-15.5); MEAN CORPUSCULAR HEMOGLOBIN 32.2 pg (27.0-33.0); MEAN CORPUSCULAR HGB CONC 34.7 g/dl (32.0-36.5); MEAN CORPUSCULAR VOLUME 92.7 fl (80.0-96.0); PLATELET COUNT, AUTOMATED 175 10^3/uL (150-450); RED BLOOD COUNT 3.95 10^6/uL (4.00-5.40); WHITE BLOOD COUNT 9.9 10^3/uL (4.0-10.0)
== END ==
LOC: M LAB 08:45
PROVIDERS: ATTEND Advanced Practice Midwife
DX: O99.212 Obesity complicating pregnancy, second trimester (principal)

== ENCOUNTER → 2021-10-13 | Outpatient (REF) | payer OTHER ==
[~2021-10-13] MED LIST changes: -ACET-683 PO; -ALBU8.5H; -IBUP-1022 PO
[2021-10-13 18:02] LABS: BASO % 0.2 % (0.0-1.0); EOS # 0.3 10^3/uL (0.0-0.5); EOS % 2.2 % (0.0-3.0); HEMATOCRIT 38.6 % (36.0-47.0); HEMOGLOBIN 13.3 g/dl (12.0-15.5); LYMPH # 3.1 10^3/uL (1.5-5.0); LYMPH % 24.4 % (24.0-44.0); MEAN CORPUSCULAR HEMOGLOBIN 31.9 pg (27.0-33.0); MEAN CORPUSCULAR HGB CONC 34.5 g/dl (32.0-36.5); MEAN CORPUSCULAR VOLUME 92.6 fl (80.0-96.0); MONO # 0.8 10^3/uL (0.0-0.8); MONO % 6.3 % (2.0-8.0); NEUTROPHILS # 8.4 10^3/uL (1.5-8.5); NEUTROPHILS % 66.5 % (36.0-66.0); PLATELET COUNT, AUTOMATED 173 10^3/uL (150-450); RED BLOOD COUNT 4.17 10^6/uL (4.00-5.40); WHITE BLOOD COUNT 12.6 10^3/uL (4.0-10.0)
[2021-10-13 18:20] LABS: ALT/SGPT 17 U/L (12-78); BILIRUBIN,TOTAL 0.1 MG/DL (0.2-1.0); CREATININE FOR GFR 0.39 MG/DL (0.55-1.30); GLOMERULAR FILTRATION RATE > 60.0 (>60); LDH LACTATE DEHYDROGENASE 181 U/L (84-246); URIC ACID 3.9 MG/DL (2.6-6.0)
== END ==
LOC: M LAB REF 17:26
PROVIDERS: ATTEND Advanced Practice Midwife
DX: O12.13 Gestational proteinuria, third trimester (principal)

== ENCOUNTER → 2021-10-13 | Outpatient (REF) | payer OTHER ==
[2021-10-13 18:08] LABS: CREATININE,RANDOM URINE 69.5 MG/DL
== END ==
LOC: M LAB REF 17:14
PROVIDERS: ATTEND Advanced Practice Midwife
DX: O12.13 Gestational proteinuria, third trimester (principal)

== ENCOUNTER → 2021-10-14 | Outpatient (CLI) | payer OTHER ==
[2021-10-14 19:12] LABS: URINE TOTAL PROTEIN 19.4 MG/DL (0-12)
[2021-10-14 20:02] LABS: CREATININE 24 HOUR, URINE 1430.7 MG/24HR (600-1800); TOTAL PROTEIN 24 HOUR URINE 286.1 MG/24HR (50-150)
== END ==
LOC: M WHC 07:04
PROVIDERS: ATTEND Advanced Practice Midwife
DX: O12.13 Gestational proteinuria, third trimester (principal); Z36.2 Encounter for other antenatal screening follow-up; Z3A.35 35 weeks gestation of pregnancy

== ENCOUNTER → 2021-10-18 | Outpatient (REF) | payer OTHER, MEDICAID | LOC: M LAB REF 11:04 | PROVIDERS: ATTEND Obstetrics & Gynecology | DX: Z34.83 Encounter for supervision of other normal pregnancy, third trimester (principal) ==

== ENCOUNTER 2021-10-27 10:34 | Inpatient (IN) | payer OTHER, MEDICAID ==
[2021-10-27] VITALS (16 sets, daily range): BP systolic 126–171; BP diastolic 65–90
[~2021-10-27] VITALS: Ht 160 cm; Wt 111.2 kg
[2021-10-27] MEDS ORDERED: ALBU8.5H (10:55)
[2021-10-27] MEDS ORDERED: HOME MED LIST COMPLETE! XX SCH (11:25)
[2021-10-27 13:27] LABS: HEMATOCRIT 35.7 % (36.0-47.0); MEAN CORPUSCULAR HEMOGLOBIN 31.3 pg (27.0-33.0); MEAN CORPUSCULAR HGB CONC 33.6 g/dl (32.0-36.5); PLATELET COUNT, AUTOMATED 147 10^3/uL (150-450); RED BLOOD COUNT 3.84 10^6/uL (4.00-5.40); WHITE BLOOD COUNT 9.8 10^3/uL (4.0-10.0)
[2021-10-27 13:50] LABS: ALT/SGPT 17 U/L (12-78); BILIRUBIN,TOTAL 0.2 MG/DL (0.2-1.0); CREATININE FOR GFR 0.31 MG/DL (0.55-1.30); GLOMERULAR FILTRATION RATE > 60.0 (>60); LDH LACTATE DEHYDROGENASE 190 U/L (84-246); URIC ACID 4.7 MG/DL (2.6-6.0)
[2021-10-27] MEDS: miSOPROStol 50MCG 1/2 TABLET SL SCH ×2 (16:52→20:49)
[2021-10-28] VITALS (25 sets, daily range): BP systolic 127–160; BP diastolic 59–91
[2021-10-28] MEDS: miSOPROStol 50MCG 1/2 TABLET SL SCH (01:02)
[2021-10-28] MEDS ORDERED: LR 1,000 ML IV SCH (05:00)
[2021-10-28] MEDS ORDERED: OXYTOCIN DRIP 30 UNITS in IV 1 EA IV SCH ×2 (05:00→17:15)
[2021-10-28] MEDS ORDERED: BUTORPHANOL 2 MG/ML INJ (J0595) IV ONE (13:40)
[2021-10-28] MEDS ORDERED: PROMETHAZINE INJ 25 MG/ML VIAL (J2550) IV ONE (13:40)
[2021-10-28] MEDS ORDERED: RHOGAM 300 MCG (1500 IU) INJ (J2790) IM SCH (17:15)
[2021-10-28] MEDS ORDERED: IBUPROFEN 800 MG TAB PO PRN (17:15)
[2021-10-28] MEDS ORDERED: ACETAMINOPHEN TAB 650MG DOSE (2X325MG) PO PRN (17:15)
[2021-10-28] MEDS ORDERED: DOCUSATE SODIUM 100MG CAPSULE PO PRN (17:15)
[2021-10-28] MEDS ORDERED: ACETAMINOPHEN 500 MG TAB PO PRN (17:15)
[2021-10-28] MEDS ORDERED: IBUPROFEN 600MG TAB PO PRN (17:15)
[2021-10-28] MEDS ORDERED: DIBUCAINE 1% OINTMENT 30GM TOP PRN (17:15)
[2021-10-28] MEDS ORDERED: MEASLES,MUMPS,RUBELLA VACCINE INJ (MMR-II) (90707) SC SCH (17:15)
[2021-10-29 05:47] VITALS: BP 132/60
[2021-10-29] MEDS: PRENATAL VITAMINS CHEWABLE TABLET PO SCH (08:55)
[2021-10-29 18:00] VITALS: BP 137/77
[2021-10-29 22:00] VITALS: BP 142/68
[2021-10-30 06:00] VITALS: BP 118/73
[2021-10-30] MEDS: PRENATAL VITAMINS CHEWABLE TABLET PO SCH (08:42)
[2021-10-30] MEDS ORDERED: IBUP-1022 PO (09:34)
[2021-10-30] MEDS ORDERED: ACET-683 PO (09:34)
== END 2021-10-30 13:10 | disposition home or self-care (01) | DRG 560 ==
LOC: M LDO 10:34 → M LDI 14:24 → M OBS 10-28 18:50
PROVIDERS: ADMIT Specialist; ATTEND Advanced Practice Midwife
PROC: 3E0P7GC Introduction of Other Therapeutic Substance into Female Reproductive, Via Natural or Artificial Opening (ICD-10-PCS; 2021-10-27)
PROC: 10E0XZZ Delivery of Products of Conception, External Approach (ICD-10-PCS; principal; 2021-10-28)
DX: O14.94 Unspecified pre-eclampsia, complicating childbirth (principal); F17.210 Nicotine dependence, cigarettes, uncomplicated; Z3A.37 37 weeks gestation of pregnancy; O99.334 Smoking (tobacco) complicating childbirth; J30.2 Other seasonal allergic rhinitis; O99.52 Diseases of the respiratory system complicating childbirth; Z37.0 Single live birth

== ENCOUNTER → 2022-06-28 | Outpatient (CLI) | payer OTHER ==
[~2022-06-28] MED LIST changes: +ACET-683 PO; +ALBU8.5H; +IBUP-1022 PO
[2022-06-28 14:09] LABS: BASO # 0.1 10^3/uL (0.0-0.2); BASO % 0.6 % (0.0-1.0); EOS # 0.3 10^3/uL (0.0-0.5); EOS % 3.3 % (0.0-3.0); HEMATOCRIT 44.1 % (36.0-47.0); HEMOGLOBIN 15.1 g/dl (12.0-15.5); LYMPH # 3.3 10^3/uL (1.5-5.0); LYMPH % 39.4 % (24.0-44.0); MEAN CORPUSCULAR HEMOGLOBIN 31.1 pg (27.0-33.0); MEAN CORPUSCULAR HGB CONC 34.2 g/dl (32.0-36.5); MEAN CORPUSCULAR VOLUME 90.9 fl (80.0-96.0); MONO # 0.8 10^3/uL (0.0-0.8); MONO % 9.4 % (2.0-8.0); NEUTROPHILS # 3.9 10^3/uL (1.5-8.5); NEUTROPHILS % 47.1 % (36.0-66.0); PLATELET COUNT, AUTOMATED 258 10^3/uL (150-450); RED BLOOD COUNT 4.85 10^6/uL (4.00-5.40); WHITE BLOOD COUNT 8.4 10^3/uL (4.0-10.0)
[2022-06-28 15:03] LABS: ALT/SGPT 32 U/L (12-78); BILIRUBIN,TOTAL 0.3 MG/DL (0.2-1.0); BLOOD UREA NITROGEN 10 MG/DL (7-18); CALCIUM LEVEL 9.6 MG/DL (8.5-10.1); CARBON DIOXIDE LEVEL 29 MEQ/L (21-32); CHLORIDE LEVEL 105 MEQ/L (98-107); CHOLESTEROL LEVEL 194 MG/DL (<200); CHOLESTEROL RISK RATIO 4.974 (<5); CREATININE FOR GFR 0.55 MG/DL (0.55-1.30); GLOMERULAR FILTRATION RATE > 60.0 (>60); GLUCOSE, FASTING 85 MG/DL (70-100); HDL CHOLESTEROL 39 MG/DL (>40); LDL CHOLESTEROL 128 MG/DL (<100); NON-HDL-C 155 MG/DL; POTASSIUM SERUM 4.5 MEQ/L (3.5-5.1); SODIUM LEVEL 138 MEQ/L (136-145); TOTAL PROTEIN 7.1 GM/DL (6.4-8.2); TRIGLYCERIDES LEVEL 134 MG/DL (<150)
== END ==
LOC: M PLALAB 10:00
PROVIDERS: ATTEND Student in an Organized Health Care Education/Training Program
DX: Z13.1 Encounter for screening for diabetes mellitus (principal)

== ENCOUNTER → 2023-01-26 | Outpatient (REF) | payer OTHER | LOC: M SFHCPLAZ 12:42 | PROVIDERS: ATTEND Student in an Organized Health Care Education/Training Program | DX: J02.9 Acute pharyngitis, unspecified (principal) ==

== ENCOUNTER → 2023-03-29 | Outpatient (CLI) | payer OTHER ==
[2023-03-29 14:09] LABS: BASO # 0.1 10^3/uL (0.0-0.2); BASO % 0.6 % (0.0-1.0); EOS # 0.3 10^3/uL (0.0-0.5); EOS % 4.2 % (0.0-3.0); HEMATOCRIT 42.6 % (36.0-47.0); HEMOGLOBIN 14.7 g/dl (12.0-15.5); LYMPH # 3.2 10^3/uL (1.5-5.0); LYMPH % 39.2 % (24.0-44.0); MEAN CORPUSCULAR HEMOGLOBIN 31.1 pg (27.0-33.0); MEAN CORPUSCULAR HGB CONC 34.5 g/dl (32.0-36.5); MEAN CORPUSCULAR VOLUME 90.3 fl (80.0-96.0); MONO # 0.5 10^3/uL (0.0-0.8); MONO % 6.2 % (2.0-8.0); NEUTROPHILS % 49.6 % (36.0-66.0); PLATELET COUNT, AUTOMATED 239 10^3/uL (150-450); RED BLOOD COUNT 4.72 10^6/uL (4.00-5.40); WHITE BLOOD COUNT 8.1 10^3/uL (4.0-10.0)
[2023-03-29 14:12] LABS: APPEARANCE, URINE HAZY (CLEAR); BACTERIA, URINE AUTO NEGATIVE (NEGATIVE); BILIRUBIN, URINE AUTO NEGATIVE (NEGATIVE); BLOOD, URINE BLOOD 1+ (NEGATIVE); COLOR, URINE YELLOW (YELLOW); GLUCOSE, URINE (UA) AUTO NEGATIVE (NEGATIVE); KETONE, URINE AUTO NEGATIVE (NEGATIVE); LEUKOCYTE ESTERASE, URINE AUTO 1+ (NEGATIVE); MUCUS, URINE MODERATE (NEGATIVE); NITRITE, URINE AUTO NEGATIVE (NEGATIVE); PROTEIN, URINE AUTO 1+ mg/dL (NEGATIVE); RBC, URINE AUTO 1 /HPF (0-3); SPECIFIC GRAVITY URINE AUTO 1.024 (1.002-1.035); SQUAMOUS EPITHELIAL CELL UR AU 9 /HPF (0-6); UROBILINOGEN, URINE AUTO 0.2 mg/dL (0.0-2.0); WBC, URINE AUTO 6 /HPF (0-3)
[2023-03-29 14:45] LABS: THYROID STIMULATING HORMONE 0.715 uIU/ML (0.55-4.78)
[2023-03-29 14:50] LABS: ALKALINE PHOSPHATASE 62 U/L (46-116); ALT/SGPT 23 U/L (7.0-40); AST/SGOT 13 U/L (<34); BILIRUBIN,TOTAL 0.7 MG/DL (0.3-1.2); BLOOD UREA NITROGEN 8 MG/DL (9-23); CALCIUM LEVEL 9.1 MG/DL (8.5-10.1); CARBON DIOXIDE LEVEL 27 MMOL/L (20-31); CHLORIDE LEVEL 105 MMOL/L (98-107); CHOLESTEROL LEVEL 174 MG/DL (<200); CREATININE FOR GFR 0.44 MG/DL (0.55-1.30); GLOMERULAR FILTRATION RATE > 60.0 (>60); GLUCOSE, FASTING 77 MG/DL (60-100); HDL CHOLESTEROL 42.4 MG/DL (>40); NON-HDL-C 131.6 MG/DL; POTASSIUM SERUM 4.2 MMOL/L (3.5-5.1); SODIUM LEVEL 141 MMOL/L (136-145); TOTAL PROTEIN 6.5 G/DL (5.7-8.2); TRIGLYCERIDES LEVEL 108 MG/DL (<150)
== END ==
LOC: M LAB 12:48
PROVIDERS: ATTEND Internal Medicine
DX: Z00.00 Encounter for general adult medical examination without abnormal findings (principal); E66.9 Obesity, unspecified